=== PATIENT | male | born 1960 | race Caucasian/White ===

== ENCOUNTER 2019-02-01 11:12 | Inpatient (IN) | payer OTHER, MEDICARE ==
[~2019-02-01] VITALS: Ht 175.3 cm; Wt 102.9 kg
[~2019-02-01 11:12] MED LIST: AMLO10 PO; LISI20 PO; OXYACE5T PO; RANI150 PO
[2019-02-01 11:57] LABS: BASOPHILS ABSOLUTE AUTO 0.01 K/mm3 (0.00-0.23); BASOPHILS PERCENT AUTO 0 % (0-2); EOSINOPHILS ABSOLUTE AUTO 0.01 K/mm3 (0.00-0.68); EOSINOPHILS PERCENT AUTO 0 % (0-6); Hematocrit 18.3 % (37.0-53.0); Hemoglobin 6.8 g/dL (13.5-17.5); IMMATURE GRAN ABSOLUTE AUTO 0.07 K/mm3 (0.00-0.10); IMMATURE GRAN PERCENT AUTO 1 % (0-1); LYMPHOCYTES ABSOLUTE AUTO 0.66 K/mm3 (0.84-5.20); LYMPHOCYTES PERCENT AUTO 7 % (21-46); MONOCYTES ABSOLUTE AUTO 0.75 K/mm3 (0.16-1.47); MONOCYTES PERCENT AUTO 8 % (4-13); Mean Corpuscular HGB 39.5 pg (26.0-34.0); Mean Corpuscular HGB Conc 37.2 g/dL (31.5-36.5); Mean Corpuscular Volume 106 fL (80-100); NEUTROPHILS ABSOLUTE AUTO 8.13 K/mm3 (1.96-9.15); NEUTROPHILS PERCENT AUTO 84 % (41-73); Platelet Count 88 K/mm3 (150-400); RDW Coefficient Variation 17.8 % (11.7-14.2); RDW Standard Deviation 68.8 fL (35.1-46.3); Red Blood Cell Count 1.72 M/mm3 (4.30-5.90); White Blood Cell Count 9.63 K/mm3 (4.00-11.30)
[2019-02-01 12:11] LABS: Alanine Aminotransfer (ALT/SGP 48 U/L (12-78); Albumin, Blood 2.3 g/dL (3.4-5.0); Albumin/Globulin Ratio 0.5 (0.8-1.8); Alk Phos 161 U/L (50-136); Anion Gap 8 mmol/L (6-16); Aspartate Aminotrans (AST/SGOT 82 U/L (12-37); Bilirubin, Total 3.8 mg/dL (0.1-1.0); Blood Urea Nitrogen 18 mg/dL (8-24); CO2, Blood 21 mmol/L (21-32); Calcium, Blood 8.5 mg/dL (8.5-10.1); Chloride, Blood 94 mmol/L (98-108); Creatinine, Blood 1.06 mg/dL (0.60-1.20); Globulin, Blood 4.4 g/dL (2.2-4.0); Glomerular Filtration Rate >60 (60-); Glucose, Blood 118 mg/dL (70-99); Potassium, Blood 5.3 mmol/L (3.5-5.5); Sodium, Blood 123 mmol/L (136-145); Total Protein, Blood 6.7 g/dL (6.4-8.2)
[2019-02-01 13:24] LABS: Magnesium, Blood 1.6 mg/dL (1.6-2.4); Phosphorus, Blood 3.5 mg/dL (2.5-4.9); Troponin I 0.069 ng/mL (0.000-0.040)
[2019-02-01] MEDS ORDERED: ALBU90OI61 INH (14:23)
[2019-02-01 15:51] LABS: Source, Urine Clean Catch
[2019-02-01 15:57] LABS: Appearance, Urine Hazy (Clear); Bilirubin, Urine Neg (Neg); Blood, Urine 1+ (Neg); Color, Urine Yellow (P-Yellow); Glucose Qualitative, Urine Neg (Neg); Ketones, Urine Neg (Neg); Leukocyte Esterase, Urine 3+ (Neg); Nitrite, Urine Neg (Neg); Protein, Urine 1+ (Neg); Urobilinogen, Urine 2+ (Normal)
[2019-02-01 16:06] LABS: White Blood Cells, Urine 25-50 /hpf (0-5)
[2019-02-01 16:07] LABS: Amorphous Light (0-Heavy); Bacteria Many /hpf; Red Blood Cells, Urine 0-2 /hpf (0-2); Squamous Epithelial Cells Rare /hpf (Few)
[2019-02-01 17:00] LABS: Source, Urine Catheter
[2019-02-01 17:09] LABS: Appearance, Urine Cloudy (Clear); Blood, Urine 3+ (Neg); Color, Urine Amber (P-Yellow); Glucose Qualitative, Urine Neg (Neg); Ketones, Urine Neg (Neg); Leukocyte Esterase, Urine 3+ (Neg); Nitrite, Urine Neg (Neg); Protein, Urine 2+ (Neg); Urobilinogen, Urine 2+ (Normal)
[2019-02-01 17:17] LABS: Bilirubin, Urine 1+ (Neg)
[2019-02-01 17:18] LABS: White Blood Cells, Urine TNTC /hpf (0-5)
[2019-02-01 17:19] LABS: Amorphous Light (0-Heavy); Bacteria Many /hpf; Squamous Epithelial Cells Rare /hpf (Few)
--- NOTE | 2019-02-01 17:44 | NUR ---
SHIFT SUMMARY PT ALERT, BUT ONLY ORIENTED TO SELF. PT SPEAKING IN SHORT SLOW SENTENCES, BUT NOT MAKING SENSE. PT DENIES PAIN. PT DID HAVE ONE SMALL BM UPON ARRIVAL THAT WAS INCONTINENT. LUU CATHETER INSERTED THIS SHIFT DUE TO RETENTION AND 500 DRAINED OUT OF DARK YELLOW URINE. ABDOMEN IS FIRM AND DISTENDED. PT HAS LONG HISTORY OF ALCOHOL ABUSE, BUT DIFFICULT TO ASSESS FOR WITHDRAWALS DUE TO MENTATION. WILL CONTINUE TO MONITOR CLOSELY AND REPORT TO ONCOMING RN. BED ALARM ON
[2019-02-02 04:10] LABS: BASOPHILS ABSOLUTE AUTO 0.01 K/mm3 (0.00-0.23); BASOPHILS PERCENT AUTO 0 % (0-2); EOSINOPHILS ABSOLUTE AUTO 0.03 K/mm3 (0.00-0.68); EOSINOPHILS PERCENT AUTO 0 % (0-6); Hemoglobin 6.1 g/dL (13.5-17.5); IMMATURE GRAN ABSOLUTE AUTO 0.05 K/mm3 (0.00-0.10); IMMATURE GRAN PERCENT AUTO 1 % (0-1); LYMPHOCYTES ABSOLUTE AUTO 0.78 K/mm3 (0.84-5.20); LYMPHOCYTES PERCENT AUTO 8 % (21-46); MONOCYTES ABSOLUTE AUTO 0.92 K/mm3 (0.16-1.47); MONOCYTES PERCENT AUTO 9 % (4-13); Mean Corpuscular HGB 38.4 pg (26.0-34.0); Mean Corpuscular HGB Conc 35.9 g/dL (31.5-36.5); Mean Corpuscular Volume 107 fL (80-100); Mean Platelet Volume 9.6 fL (9.1-12.4); NEUTROPHILS ABSOLUTE AUTO 7.96 K/mm3 (1.96-9.15); NEUTROPHILS PERCENT AUTO 82 % (41-73); NRBC ABSOLUTE 0.02 K/mm3 (0.00-0.02); NRBC Auto 0.2 /100 WBC (0.0-0.2); Platelet Count 85 K/mm3 (150-400); RDW Coefficient Variation 18.4 % (11.7-14.2); Red Blood Cell Count 1.59 M/mm3 (4.30-5.90); White Blood Cell Count 9.75 K/mm3 (4.00-11.30)
[2019-02-02 04:26] LABS: Alanine Aminotransfer (ALT/SGP 49 U/L (12-78); Albumin, Blood 1.9 g/dL (3.4-5.0); Albumin/Globulin Ratio 0.6 (0.8-1.8); Alk Phos 115 U/L (50-136); Anion Gap 6 mmol/L (6-16); Aspartate Aminotrans (AST/SGOT 179 U/L (12-37); Bilirubin, Total 3.3 mg/dL (0.1-1.0); Blood Urea Nitrogen 18 mg/dL (8-24); Bun/Creatinine Ratio 18.2 (12.0-20.0); CO2, Blood 23 mmol/L (21-32); Calcium, Blood 7.9 mg/dL (8.5-10.1); Chloride, Blood 98 mmol/L (98-108); Creatinine, Blood 0.99 mg/dL (0.60-1.20); Globulin, Blood 3.4 g/dL (2.2-4.0); Glomerular Filtration Rate >60 (60-); Glucose, Blood 83 mg/dL (70-99); Magnesium, Blood 1.6 mg/dL (1.6-2.4); Potassium, Blood 4.4 mmol/L (3.5-5.5); Sodium, Blood 127 mmol/L (136-145); Total Protein, Blood 5.3 g/dL (6.4-8.2)
--- NOTE | 2019-02-02 05:35 | NUR ---
CALL TO MD: H&H CALL TO MD KEN THIS AM TO REPORT HGB OF 6.1 AND HCT OF 17.0 W/ ORDERS TO TRANSFUSE 1 UNIT PRBC'S.
--- NOTE | 2019-02-02 06:28 | NUR ---
SHIFT SUMMARY PT BECOMING MORE ALERT, SAYING MORE WORDS, FOLLOWING INSTRUCTIONS. PT REPETITVELY SAYING "FUCK" AND "GOD DAMNIT" DURING SHIFT W/ NO EXPLANATION OF WHY WHEN ASKED BY STAFF. PT COOPERATIVE W/ CARE. VSS. LUNG SOUNDS CLEAR, SPO2 > 92% ON RA. MONITOR SHOWS NSR, HR 70-90. PT'S ABD SEVERELY DISTENDED AND FIRM. PT INCONTINENT OF STOOL W/ LOOSE BROWN STOOLS THIS SHIFT. LUU CATH PATENT AND DRAINING DARK YELLOW URINE. BLE EDEMATOUS. CALL TO MD KEN TO REPORT H&H W/ ORDERS TO TRANSFUSE 1 UNIT PRBC'S. TYPE AND CROSS DONE. UNIT OF PRBC'S TO BE TRANSFUSED. WILL CONTINUE TO MONITOR AND PROVIDE CARE UNTIL REPORT OFF TO DAY SHIFT RN.
--- NOTE | 2019-02-02 10:28 | NUR ---
Initial Visit: Palliative Care Consult for Medically Fragile and Symptom Management. Pt is A&OX1. Pt denies pain at this time. No S/S of dyspnea at this time. When attempting to speak he answers occasionaly yes or no. Called and spoke with Pt's sister Elma. Engaged in therapeutic discussion regarding goals of care. Elma reports Pt lost his in August of this year and since Pt has shown a significant decline. Elma reports Pt's was the health care decision maker when she was alive and now she is the Pt's only family. Elma reports Pt has been living with her for the last 3 weeks. She states Pt was not caring for himeself and has been experiencing increased confusion. Pt was soiled of bowel and bladder on the day she took him in. Elma states Pt's lucid moments are few and far between. He requires assistance with ambulation, bathing, and dressing. He is incontinent of bowel and bladder often. Elma reports his appetite has also decreased and does not eat much. Discussed disease process with Elma and goals of care including hospic as an option. Elma states that she feels Pt should be placed on hospice. Educated Elma on hospice philosophy and comfort care philosophy. Elma also reports Pt is a but is unsure if he is service connected. She reports difficulty with caring for Pt due to raising 2 children in the home. Elma reports yudith she would like Pt placed in facility on hospice upon discharge and would like Pt placed on comfort measures only during hospital stay. Relayed information given to this RN from Dr Bae that Pt is appropriate for comfort measures and hospice but would like GI to consult before making final decision. Elma is agreeable. Called [place] and requested AD and POLST. Louie from [place] reports POLST only on file and faxed to palliative care. POLST completed by Pt's on 06/15/17. POLST reads CPR, Full Treatment, and Supervisor Cutting And Boning Artificial Nutrition by Tube. If goals of care switch to comfort care consideration of new POLST to be completed by family. Plan: Will await GI consultation to determine goals of care. Comfort Care is being considered. Will place Social Service Consult once goals of care are determined.
[2019-02-02 12:07] LABS: Hemoglobin 7.3 g/dL (13.5-17.5)
--- NOTE | 2019-02-02 17:27 | NUR ---
Called and spoke with Pt's sister Elma. Elma reports receiving call from Dr Edwards and is agreeable with his plan of care. Elma expresses concerns if Pt recovers she does not want him living at his home. Elma reports his home's condition is poor. She expresses concerns that Pt will not be compliant with Doctor recommendations. She states when she went to Pt's home there were a lot of empty beer cans and a lot of empty vodka bottles. She requests to have a pediatric social worker call her to discuss concerns. Instructed Elma a social service referral will be placed and a director of critical care will call to discuss concerns. Palliative Care will remain available
--- NOTE | 2019-02-02 18:32 | NUR ---
SHIFT SUMMARY PT ONLY ORIENTED TO SELF. PT STILL CONFUSED AND UNABLE TO ANSWER QUESTIONS APPROPRIATELY. PT RECEIVED 1U PRBC THIS SHIFT. CLINIMIX INFUSING PER ORDERS. PT HAVING FREQUENT LOOSE BROWN STOOL. ORDERS FROM DR. COLLINS TO TITRATE LACTULOSE UNTIL 2-3 BM A DAY. PLAN FOR PARACENTESIS TOMORROW. WILL CONTINUE TO MONITOR AND REPORT TO ONCOMING RN.
--- NOTE | 2019-02-02 21:47 | NUR ---
CARE ASSUMED CARE AND REPORT ASSUMED FROM ELY WILLSON. PT SLEEPING IN BED BUT AROUSES EASILY. A/O ONLY TO SELF. DENIES PAIN AT THIS TIME. VSS. NSR. LUNG SOUNDS CLEAR. CLINIMIX INFUSING PER ORDER. PT GIVEN BEDBATH BY PHOTOCOMPOSING MACHINE OPERATOR AND LINENS CHANGED. WILL CONTINUE TO MONITOR.
--- NOTE | 2019-02-03 00:13 | NUR ---
REASSESSMENT PT SLEEPING BUT EASILY AWAKENS. DENIES PAIN. HAD LARGE, INCONTINENT BM IN BRIEF. BREIF AND LINENS CHANGED. CLINIMIX REMAINS INFUSING. WILL CONTINUE TO MONITOR.
[2019-02-03 03:47] LABS: BASOPHILS ABSOLUTE AUTO 0.01 K/mm3 (0.00-0.23); BASOPHILS PERCENT AUTO 0 % (0-2); EOSINOPHILS ABSOLUTE AUTO 0.01 K/mm3 (0.00-0.68); EOSINOPHILS PERCENT AUTO 0 % (0-6); Hematocrit 18.9 % (37.0-53.0); Hemoglobin 6.8 g/dL (13.5-17.5); IMMATURE GRAN ABSOLUTE AUTO 0.09 K/mm3 (0.00-0.10); IMMATURE GRAN PERCENT AUTO 1 % (0-1); LYMPHOCYTES ABSOLUTE AUTO 1.01 K/mm3 (0.84-5.20); LYMPHOCYTES PERCENT AUTO 7 % (21-46); MONOCYTES PERCENT AUTO 9 % (4-13); Mean Corpuscular Volume 106 fL (80-100); Mean Platelet Volume 10.8 fL (9.1-12.4); NEUTROPHILS ABSOLUTE AUTO 12.45 K/mm3 (1.96-9.15); NEUTROPHILS PERCENT AUTO 84 % (41-73); NRBC ABSOLUTE 0.02 K/mm3 (0.00-0.02); NRBC Auto 0.1 /100 WBC (0.0-0.2); Platelet Count 84 K/mm3 (150-400); RDW Coefficient Variation 18.6 % (11.7-14.2); RDW Standard Deviation 70.7 fL (35.1-46.3); Red Blood Cell Count 1.79 M/mm3 (4.30-5.90); White Blood Cell Count 14.87 K/mm3 (4.00-11.30)
[2019-02-03 03:58] LABS: International Normalized Ratio 1.66; Prothrombin Time Results 16.8 Sec (9.7-11.5)
[2019-02-03 04:03] LABS: Alanine Aminotransfer (ALT/SGP 56 U/L (12-78); Albumin, Blood 1.9 g/dL (3.4-5.0); Albumin/Globulin Ratio 0.6 (0.8-1.8); Alk Phos 110 U/L (50-136); Anion Gap 9 mmol/L (6-16); Aspartate Aminotrans (AST/SGOT 219 U/L (12-37); Bilirubin, Total 4.4 mg/dL (0.1-1.0); Blood Urea Nitrogen 22 mg/dL (8-24); Bun/Creatinine Ratio 19.1 (12.0-20.0); CO2, Blood 22 mmol/L (21-32); Calcium, Blood 7.7 mg/dL (8.5-10.1); Chloride, Blood 98 mmol/L (98-108); Creatinine, Blood 1.15 mg/dL (0.60-1.20); Globulin, Blood 3.4 g/dL (2.2-4.0); Glomerular Filtration Rate >60 (60-); Glucose, Blood 89 mg/dL (70-99); Potassium, Blood 3.9 mmol/L (3.5-5.5); Sodium, Blood 129 mmol/L (136-145); Total Protein, Blood 5.3 g/dL (6.4-8.2)
--- NOTE | 2019-02-03 06:17 | NUR ---
SHIFT SUMMARY PT SLEPT ON/OFF MOST OF SHIFT. NO SIGNS OF PAIN. VSS ENTIRE SHIFT. PT HAD MULTIPLE LARGE, SOFT, INCONTINENT BOWEL MOVEMENTS. LINENS, GINGER CARE, AND BRIEFS CHANGED FREQUENTLY DURING SHIFT. PT MANAGED TO PULL 2 PERIPHERAL IVS OUT OF ARMS. 2 NEW IVS INSERTED JUST NOW. MD BEACH CALLED AND NOTIFIED OF HGB 6.8; 1 UNIT PRBCS TO BE ADMINISTERED; AWAITING UNIT. CLINIMIX INFUSED ENTIRE SHIFT. WILL GIVE BEDSIDE, HANDOFF REPORT TO DAY RN.
[2019-02-03 08:23] LABS: Hematocrit 19.8 % (37.0-53.0); Hemoglobin 7.2 g/dL (13.5-17.5); Mean Corpuscular HGB 37.9 pg (26.0-34.0); Mean Corpuscular HGB Conc 36.4 g/dL (31.5-36.5); Mean Corpuscular Volume 104 fL (80-100); NRBC ABSOLUTE 0.02 K/mm3 (0.00-0.02); NRBC Auto 0.1 /100 WBC (0.0-0.2); Platelet Count 78 K/mm3 (150-400); RDW Coefficient Variation 19.2 % (11.7-14.2); RDW Standard Deviation 71.6 fL (35.1-46.3)
--- NOTE | 2019-02-03 10:24 | NUR ---
RECEIVED REPORT AND ASSUMED CARE OF PATIENT, HE IS ALERT TO SELF AND IS ANSWERING QUESTIONS SLOWLY, ALSO ABLE TO PROVIDE PERSONAL ADL OF WASHING HIS FACE THIS AM. PT INCONTINENT OF BOWEL, CHANGED ATTENDS AND LINENS AND WILL CONTINUE TO MONITOR. COCCYX IS RED AND SOME OPEN AREA OF SKIN, WILL WATCH CLOSELY. APPLIED BARRIER CREAM TO AFFECTED AREA. VSS, ONE UNIT OF PRBC COMPLETE AND SECOND WILL START AFTER CIPRO ABX COMPLETE. WILL CONTINUE TO MONITOR AND ASSESS. BED ALARM SET.
[2019-02-03 13:27] LABS: Albumin, Body Fluid 0.4 g/dL; Protein, Body Fluid 1.1 g/dL
[2019-02-03 13:30] LABS: Automated BF RBC Count 0.028 M/mm3 (0-0); Automated BF WBC Count 0.341 K/mm3 (0-999); Body Fluid WBC Count 341 /mm3 (0-999); RBC Count, Body Fluid 28000 /mm3 (0-0)
[2019-02-03 14:03] LABS: Color, Body Fluid Red (None-Yellow)
[2019-02-03 14:04] LABS: Appearance, Body Fluid Cloudy (Clear)
[2019-02-03 14:17] LABS: Total Cell Count, Body Fluid 100
[2019-02-03 16:32] LABS: Hematocrit 23.1 % (37.0-53.0); Hemoglobin 8.2 g/dL (13.5-17.5)
--- NOTE | 2019-02-03 18:32 | NUR ---
PT HAD A GOOD DAY TODAY, PARACENTESIS COMPLETED AND 2.5 L OFF, PT STATED THAT IT FELT BETTER WITH LESS PRESSURE. WHEN PT CAME BACK FROM PROCEDURE HE STATED HE WANTED TO EAT. PROVIDED JELLO, HE ATE TWO SMALL CONTAINERS WITH NO PROBLEM, CALLED DR. MCHUGH FOR ORDER TO ADVANCE DIET AND GET A FULL LIQUID TRAY. PT HAS BEEN SLEEPY THIS AFTERNOON, DINNER TRAY HAS REMAINED UNTOUCHED, BUT PT MAY BE ABLE TO HAVE SOME ITEMS LATER WHEN HE IS WOKEN UP MORE. PT CONTINUES ON CLIMIX 75 ML/HR. 2 UNITS PRBC TODAY. LUU CATH IN PLACE. MANY ATTENDS AND LINEN CHANGES FROM BM'S TODAY. WILL CONTINUE TO MONITOR AND GIVE REPORT TO NOC RN.
--- NOTE | 2019-02-03 21:40 | NUR ---
CARE ASSUMED/ DR. COLLINS COMMUNICATION REPORT RECEIVED, CARE ASSUMED AT 1900. PT DROWSY, SLOW TO RESPOND BUT ORIENTED TO SELF AND LOCATION. SEE SHIFT ASSESSMENT. VITALS STABLE. PT DENIES PAIN/DISCOMFORT. DR. COLLINS TO BEDSIDE FOR ASSESSMENT AT 2134. UPDATED ON EVENTS OF DAY. DISCUSSED LACTULOS IN RELATION TO BOWEL MOVEMENTS AND DR. COLLINS ARTICULATED A GOAL OF 2-3 PUDDING LIKE STOOLS PER DAY, HOLD FOR DIARRHEA. WILL HOLD 2100 DOSE. OTHERWISE, NO CHANGES TO PLAN OF CARE.
[2019-02-04 03:07] LABS: HBSAG SCREEN Negative (Negative); HCV ANTIBODY <0.1 (0.0-0.9); HEP B CORE AB, TOT Negative (Negative)
[2019-02-04 03:57] LABS: BASOPHILS PERCENT AUTO 0 % (0-2); EOSINOPHILS ABSOLUTE AUTO 0.03 K/mm3 (0.00-0.68); EOSINOPHILS PERCENT AUTO 0 % (0-6); Hematocrit 21.3 % (37.0-53.0); Hemoglobin 7.7 g/dL (13.5-17.5); IMMATURE GRAN ABSOLUTE AUTO 0.08 K/mm3 (0.00-0.10); IMMATURE GRAN PERCENT AUTO 1 % (0-1); LYMPHOCYTES ABSOLUTE AUTO 1.01 K/mm3 (0.84-5.20); LYMPHOCYTES PERCENT AUTO 8 % (21-46); MONOCYTES ABSOLUTE AUTO 0.99 K/mm3 (0.16-1.47); MONOCYTES PERCENT AUTO 8 % (4-13); Mean Corpuscular HGB 36.5 pg (26.0-34.0); Mean Corpuscular HGB Conc 36.2 g/dL (31.5-36.5); Mean Platelet Volume 10.9 fL (9.1-12.4); NEUTROPHILS ABSOLUTE AUTO 10.16 K/mm3 (1.96-9.15); NEUTROPHILS PERCENT AUTO 83 % (41-73); NRBC ABSOLUTE 0.02 K/mm3 (0.00-0.02); NRBC Auto 0.2 /100 WBC (0.0-0.2); Platelet Count 66 K/mm3 (150-400); RDW Standard Deviation 77.3 fL (35.1-46.3); Red Blood Cell Count 2.11 M/mm3 (4.30-5.90); White Blood Cell Count 12.27 K/mm3 (4.00-11.30)
[2019-02-04 04:04] LABS: Mean Corpuscular Volume 101 fL (80-100)
[2019-02-04 04:10] LABS: International Normalized Ratio 1.66; Prothrombin Time Results 16.8 Sec (9.7-11.5)
[2019-02-04 04:22] LABS: Alanine Aminotransfer (ALT/SGP 54 U/L (12-78); Albumin, Blood 1.9 g/dL (3.4-5.0); Albumin/Globulin Ratio 0.6 (0.8-1.8); Alk Phos 90 U/L (50-136); Anion Gap 8 mmol/L (6-16); Aspartate Aminotrans (AST/SGOT 173 U/L (12-37); Bilirubin, Total 4.8 mg/dL (0.1-1.0); Blood Urea Nitrogen 31 mg/dL (8-24); CO2, Blood 22 mmol/L (21-32); Calcium, Blood 7.6 mg/dL (8.5-10.1); Chloride, Blood 97 mmol/L (98-108); Creatinine, Blood 1.15 mg/dL (0.60-1.20); Globulin, Blood 3.2 g/dL (2.2-4.0); Glomerular Filtration Rate >60 (60-); Glucose, Blood 94 mg/dL (70-99); Potassium, Blood 3.8 mmol/L (3.5-5.5); Sodium, Blood 127 mmol/L (136-145); Total Protein, Blood 5.1 g/dL (6.4-8.2)
--- NOTE | 2019-02-04 06:03 | NUR ---
SUMMARY THROUGHOUT NIGHT PT HAS REMAINED ORIENTED TO SELF AND LOCATION, BUT CONFUSED AND PULLING AT DISTRIBUTION OPERATION SUPERVISOR, CHEWING ON WIRES, AND HE ALSO PULLED ONE OF HIS IV'S. PT ASKS QUESTIONS THAT DO NOT MAKE SENSE. PROVIDED WITH FREQUENT REORIENTATION. ATTEMPTED TO ADMINISTER MORNING ORAL MEDS UNSUCCESFULLY PT IS NOT FOLLOWING COMMANDS. PT HAD SEVERAL BOWEL MOVEMEMENTS. THE MOST RECENT WERE LARGE, ROUND AND FIRM AND DIARRHEA HAS RESOLVED. CONTINUES TO BE INCONTINENT. VITALS STABLE. OTHERWISE, ASSESSMENTS UNCHANGED.
--- NOTE | 2019-02-04 15:17 | NUR ---
RECEIVED REPORT AND ASSUMED CARE OF PATIENT, HE HAD A GREAT MORNING, HE WAS UP AND ATE ALL OF HIS BREAKFAST AND TOLERATED WELL. PT WAS UP WITH OT AND WALKED TO BATHROOM FOR BM. PT HAD BATH AND WAS BACK TO BED. PT WAS PRETTY SLEEPY THIS AFTERNOON, WHEN HE AWAKES, HE IS ALERT TO SELF AND ANSWERS QUESTIONS APPROPRIATELY. DR HENRYTRATE TO SEE PATIENT AND ENCOURAGED PT TO BE UP IN THE ROOM A FEW TIMES A DAY, WILL GET PATIENT UP TO CHAIR FOR DINNER. TRANSFER ORDER TO MEDICAL IS IN, WILL AWAIT A BED AND GIVE REPORT IF ONE COMES AVAILABLE.
--- NOTE | 2019-02-04 18:29 | NUR ---
REPORT GIVEN TO ROOM 304 MEDICAL FLOOR NURSE. PT SITTING UP EATING DINNER AT THIS TIME. TOLERATING ADVANCEMENT OF DIET WELL.
--- NOTE | 2019-02-04 18:30 | NUR ---
PT. ARRIVED TO ROOM VIA BED FROM PCU-10. BEDS TRADED AND SETTLED PT. IN. SKIN OOZING ON RIGHT SIDE GOWN WENT, CHANGED GOWN AND PLACED A MEPILEX. PT. HAS SORES T/O AND IS JAUNDICED T/O.WILL SETTLE PATIENT IN AND REPORT OFF TO ONCOMING SHIFT.
[2019-02-05 04:40] LABS: BASOPHILS ABSOLUTE AUTO 0.01 K/mm3 (0.00-0.23); BASOPHILS PERCENT AUTO 0 % (0-2); EOSINOPHILS ABSOLUTE AUTO 0.08 K/mm3 (0.00-0.68); EOSINOPHILS PERCENT AUTO 1 % (0-6); Hematocrit 21.6 % (37.0-53.0); Hemoglobin 7.8 g/dL (13.5-17.5); IMMATURE GRAN ABSOLUTE AUTO 0.08 K/mm3 (0.00-0.10); IMMATURE GRAN PERCENT AUTO 1 % (0-1); LYMPHOCYTES ABSOLUTE AUTO 1.04 K/mm3 (0.84-5.20); LYMPHOCYTES PERCENT AUTO 12 % (21-46); MONOCYTES ABSOLUTE AUTO 0.69 K/mm3 (0.16-1.47); MONOCYTES PERCENT AUTO 8 % (4-13); Mean Corpuscular HGB 36.3 pg (26.0-34.0); Mean Corpuscular HGB Conc 36.1 g/dL (31.5-36.5); Mean Corpuscular Volume 101 fL (80-100); Mean Platelet Volume 9.6 fL (9.1-12.4); NEUTROPHILS ABSOLUTE AUTO 6.75 K/mm3 (1.96-9.15); NEUTROPHILS PERCENT AUTO 78 % (41-73); NRBC ABSOLUTE 0.02 K/mm3 (0.00-0.02); NRBC Auto 0.2 /100 WBC (0.0-0.2); Platelet Count 69 K/mm3 (150-400); RDW Coefficient Variation 19.9 % (11.7-14.2); RDW Standard Deviation 71.6 fL (35.1-46.3); Red Blood Cell Count 2.15 M/mm3 (4.30-5.90); White Blood Cell Count 8.65 K/mm3 (4.00-11.30)
[2019-02-05 04:54] LABS: Alanine Aminotransfer (ALT/SGP 52 U/L (12-78); Albumin, Blood 1.9 g/dL (3.4-5.0); Albumin/Globulin Ratio 0.6 (0.8-1.8); Alk Phos 102 U/L (50-136); Anion Gap 8 mmol/L (6-16); Aspartate Aminotrans (AST/SGOT 132 U/L (12-37); Bilirubin, Total 3.2 mg/dL (0.1-1.0); Blood Urea Nitrogen 35 mg/dL (8-24); Bun/Creatinine Ratio 28.5 (12.0-20.0); CO2, Blood 22 mmol/L (21-32); Calcium, Blood 7.5 mg/dL (8.5-10.1); Chloride, Blood 97 mmol/L (98-108); Creatinine, Blood 1.23 mg/dL (0.60-1.20); Globulin, Blood 3.4 g/dL (2.2-4.0); Glomerular Filtration Rate >60 (60-); Glucose, Blood 104 mg/dL (70-99); Potassium, Blood 4.1 mmol/L (3.5-5.5); Sodium, Blood 127 mmol/L (136-145); Total Protein, Blood 5.3 g/dL (6.4-8.2)
--- NOTE | 2019-02-05 07:26 | NUR ---
abdm still swollen, no discharge noted, call light in reach, saline locked, room air, report given to returning day shift nurse
--- NOTE | 2019-02-05 13:41 | NUR ---
Pt visit this afternoon. Pt is resting in bed with his eyes closed upon arrival. He opens his eyes with verbal stimulation. Pt is A&Ox2. Pt is somnolent and lethargic. Pt has difficulty keeping his eyes open during conversation. He denies pain, axiety, and dyspnea. Spoke with bedside nurse Mesha and discussed case. Palliative Care will remain available.
[2019-02-05 14:47] LABS: International Normalized Ratio 1.54; Prothrombin Time Results 15.7 Sec (9.7-11.5)
[2019-02-05] MEDS ORDERED: LEVSOD125 PO (21:30)
[2019-02-05] MEDS ORDERED: FOLI1 PO (21:32)
[2019-02-05] MEDS ORDERED: CHOL10002 PO (21:32)
[2019-02-05] MEDS ORDERED: MAGNESIUM400 M1 PO (21:33)
[2019-02-05] MEDS ORDERED: SERT100 PO (21:34)
[2019-02-05] MEDS ORDERED: PROP10 PO (21:34)
[2019-02-05] MEDS ORDERED: SPIR25 PO (21:35)
[2019-02-06 04:41] LABS: BASOPHILS PERCENT AUTO 0 % (0-2); EOSINOPHILS ABSOLUTE AUTO 0.15 K/mm3 (0.00-0.68); EOSINOPHILS PERCENT AUTO 2 % (0-6); Hematocrit 20.7 % (37.0-53.0); Hemoglobin 7.4 g/dL (13.5-17.5); IMMATURE GRAN ABSOLUTE AUTO 0.12 K/mm3 (0.00-0.10); IMMATURE GRAN PERCENT AUTO 2 % (0-1); LYMPHOCYTES ABSOLUTE AUTO 0.93 K/mm3 (0.84-5.20); LYMPHOCYTES PERCENT AUTO 14 % (21-46); MONOCYTES ABSOLUTE AUTO 0.64 K/mm3 (0.16-1.47); MONOCYTES PERCENT AUTO 10 % (4-13); Mean Corpuscular HGB 35.9 pg (26.0-34.0); Mean Corpuscular HGB Conc 35.7 g/dL (31.5-36.5); Mean Corpuscular Volume 101 fL (80-100); Mean Platelet Volume 10.8 fL (9.1-12.4); NEUTROPHILS ABSOLUTE AUTO 4.67 K/mm3 (1.96-9.15); NEUTROPHILS PERCENT AUTO 72 % (41-73); Platelet Count 65 K/mm3 (150-400); RDW Coefficient Variation 19.9 % (11.7-14.2); RDW Standard Deviation 72.2 fL (35.1-46.3); Red Blood Cell Count 2.06 M/mm3 (4.30-5.90); White Blood Cell Count 6.51 K/mm3 (4.00-11.30)
[2019-02-06 04:57] LABS: Alanine Aminotransfer (ALT/SGP 48 U/L (12-78); Albumin, Blood 1.8 g/dL (3.4-5.0); Albumin/Globulin Ratio 0.5 (0.8-1.8); Alk Phos 122 U/L (50-136); Anion Gap 6 mmol/L (6-16); Aspartate Aminotrans (AST/SGOT 107 U/L (12-37); Bilirubin, Total 2.5 mg/dL (0.1-1.0); Blood Urea Nitrogen 34 mg/dL (8-24); Bun/Creatinine Ratio 28.3 (12.0-20.0); CO2, Blood 24 mmol/L (21-32); Calcium, Blood 7.5 mg/dL (8.5-10.1); Chloride, Blood 98 mmol/L (98-108); Globulin, Blood 3.3 g/dL (2.2-4.0); Glomerular Filtration Rate >60 (60-); Glucose, Blood 95 mg/dL (70-99); Magnesium, Blood 1.8 mg/dL (1.6-2.4); Potassium, Blood 4.1 mmol/L (3.5-5.5); Sodium, Blood 128 mmol/L (136-145); Total Protein, Blood 5.1 g/dL (6.4-8.2)
--- NOTE | 2019-02-06 06:20 | NUR ---
SHIFT SUMMARY NO ACUTE CHANGES TONIGHT. PT IS ALERT, BUT COGNITIVELY IMPAIRED. ABLE TO CARRY ON MINIMAL CONVERSATION, UNAWARE OF DATA, LOCATION. SLOW TO RESPOND. HYPOTENSIVE, BASELINE FOR PT, BP MEDS HELD. 2+ EDEMA TO BLE, ASCITES TO ABDOMEN. PRESSURE ULCER TO COCCYX, MEPILEX IN PLACE. PT IN NEED OF SNF PLACEMENT. NO OTHER CHANGES TO REPORT. WILL CONT TO MONITOR AND PROVIDE CARE UNTIL PRESUMED BY ONCOMING RN.
--- NOTE | 2019-02-06 16:10 | NUR ---
summary/TRANSFER PT IS A/O X2, DISORIENTED TO TIME/DATE, SOMEWHAT VAGUE RESPONSES R/T REASON FOR HOSP. ANSWERS SIMPLE QUEST APPROP. HE APPEARS, WEAK/FATIGUED, LETHARGIC. DR MCHUGH IN TO SEE HIM THIS AM, STATE IMPROVED FROM PREVIOUS DAYS, STATE READY FOR TRANSFER TO SNF AFTER SEEN BY GI DR COLLINS. DR COLLINS IN TO ASSESS, ABD ROUND, DISTENDED SOMEWHAT FIRM HOWEVER DR STATE IMPROVEMENT, STATE PT MAY BE D/C TO SNF TODAY. STATE TO HOLD LACTULOSE & TITRATE FOR 2-3 SOFT PASTY STOOLS/DAY. PT ENCOURAGED TO AMBULATE, UP WITH PHYTHER AMBULATE SHORT DISTANCE IN ROOM. GRID CASTING MACHINE OPERATOR HELPER ARRANGE TRANSFER TO [facility] WILL PROVIDE TRANSPORT APPROX 1730. CALLED REPORT TO JUAN LUIS RN. IV D/C INTACT. PT WILL TRANSFER WITH [facility] CATH IN PLACE/DR MCHUGH.
--- NOTE | 2019-02-06 16:59 | NUR ---
Pal Spiritual Care note: Mr. Damon was alone in room and sleeping. He awakend briefly to voice and complained of being "cold." Brought warm blanket and tried to engage him in theraputic conversation. He appeared too weak to stay awake. I will remain available.
--- NOTE | 2019-02-06 17:09 | NUR ---
HOLD TRANSFER TO SNF. PT FAMILY IN TO VISIT. INFORMED THAT PT WOULD BE TRANSFERING TO [facility] @ 1730. THEY ARE UPSET STATE THEY HAD MADE REQUEST WITH TRANSFER PUMPER YESTERDAY THAT THEY PREFER [facility]. CALL TO IRINA PELAEZ TRANSFER PUMPER ARRANGING D/C TODAY, SHE STATE WAS UNAWARE, STATE WILL CALL DR MCHUGH TO HOLD TRANSFER, STATE WILL RE-ARRANGE TRANSFER IN AM TO [facility]. FAMILY INFORMED STATE SATISFACTION.
--- NOTE | 2019-02-06 21:53 | NUR ---
PLACED CALL TO HOSPITALIST IN REGARDS TO AM HGB OF 7.4. ASKED TO ORDER CBC IN AM PRIOR TO D/C TO MAKE SURE PT DOES NOT REQUIRE RBC TRANSJohn KAHN DECLINED NEED FOR CBC. WILL CONT TO MONITOR.
--- NOTE | 2019-02-07 00:55 | NUR ---
PLACED CALL TO SUELLEN valdez SAME CONCERNS PRIOR NOTE. ORDERED CBC AND CMP AM LABS.
[2019-02-07 05:40] LABS: BASOPHILS ABSOLUTE AUTO 0.01 K/mm3 (0.00-0.23); BASOPHILS PERCENT AUTO 0 % (0-2); EOSINOPHILS ABSOLUTE AUTO 0.15 K/mm3 (0.00-0.68); EOSINOPHILS PERCENT AUTO 3 % (0-6); Hematocrit 20.7 % (37.0-53.0); Hemoglobin 7.3 g/dL (13.5-17.5); IMMATURE GRAN PERCENT AUTO 2 % (0-1); LYMPHOCYTES ABSOLUTE AUTO 0.92 K/mm3 (0.84-5.20); LYMPHOCYTES PERCENT AUTO 17 % (21-46); MONOCYTES ABSOLUTE AUTO 0.68 K/mm3 (0.16-1.47); MONOCYTES PERCENT AUTO 12 % (4-13); Mean Corpuscular HGB 36.3 pg (26.0-34.0); Mean Corpuscular HGB Conc 35.3 g/dL (31.5-36.5); Mean Corpuscular Volume 103 fL (80-100); Mean Platelet Volume 10.4 fL (9.1-12.4); NEUTROPHILS ABSOLUTE AUTO 3.73 K/mm3 (1.96-9.15); NEUTROPHILS PERCENT AUTO 67 % (41-73); NRBC ABSOLUTE 0.02 K/mm3 (0.00-0.02); NRBC Auto 0.4 /100 WBC (0.0-0.2); Platelet Count 61 K/mm3 (150-400); RDW Coefficient Variation 20.1 % (11.7-14.2); RDW Standard Deviation 75.1 fL (35.1-46.3); Red Blood Cell Count 2.01 M/mm3 (4.30-5.90); White Blood Cell Count 5.59 K/mm3 (4.00-11.30)
[2019-02-07 06:07] LABS: Alanine Aminotransfer (ALT/SGP 42 U/L (12-78); Albumin, Blood 1.7 g/dL (3.4-5.0); Albumin/Globulin Ratio 0.5 (0.8-1.8); Alk Phos 132 U/L (50-136); Anion Gap 8 mmol/L (6-16); Aspartate Aminotrans (AST/SGOT 83 U/L (12-37); Bilirubin, Total 2.3 mg/dL (0.1-1.0); Blood Urea Nitrogen 28 mg/dL (8-24); Bun/Creatinine Ratio 26.9 (12.0-20.0); CO2, Blood 22 mmol/L (21-32); Calcium, Blood 7.3 mg/dL (8.5-10.1); Chloride, Blood 99 mmol/L (98-108); Creatinine, Blood 1.04 mg/dL (0.60-1.20); Globulin, Blood 3.4 g/dL (2.2-4.0); Glomerular Filtration Rate >60 (60-); Glucose, Blood 121 mg/dL (70-99); Potassium, Blood 3.9 mmol/L (3.5-5.5); Sodium, Blood 129 mmol/L (136-145); Total Protein, Blood 5.1 g/dL (6.4-8.2)
--- NOTE | 2019-02-07 06:11 | NUR ---
SHIFT SUMMARY NO ACUTE CHANGES TONIGHT. PT MENTATION HAS IMPROVED OVER THE LAST FEW DAYS. PT IS A&O, WITH BASELINE LETHARGY AND ACUTE MINOR CONFUSION. PT IS ALERT TO SELF, PLACE, SURROUNDINGS, FOLLOWING DIRECTIONS. PM LACTULOSE HELD D/T SEVERAL LOOSE BMs. [facility]. NO OTHER CHANGES TO REPORT. WILL CONT TO MONITOR AND PROVIDE CARE UNTIL PRESUMED BY ONCOMING RN.
[2019-02-07] MEDS ORDERED: Feverall650 MG PR (12:57)
[2019-02-07] MEDS ORDERED: HALO2 PO (12:58)
[2019-02-07] MEDS ORDERED: FURO20 PO (12:58)
[2019-02-07] MEDS ORDERED: LACTULOSE20 GM/30 M PO (13:00)
[2019-02-07] MEDS ORDERED: ONDA4ODT SL (13:04)
[2019-02-07] MEDS ORDERED: Florastor250 MG PO (13:04)
--- NOTE | 2019-02-07 14:30 | NUR ---
SUMMARY/TRANSFER SNF DR COLLINS IN T SEE PT THIS AM, ASSESS ABD, ENCOURAGE PT TO AMBULATE MORE FREQUENTLY, STATE OK FOR D/C TO SNF TODAY. DR MCHUGH IN, PLACE ORDERS. IRINA Velazquez, COLOR REPAIRER ARRANGE TRANSFER TO UV/FAMILY REQUEST. TRANSPORTATION ARRANGED FOR 1530 VIA W/C V[facility]. FAMILY NOTIFIED, WILL MEET HIM @ FACILITY. REPORT CALLED TO [facility] RN. BEDBATH PROVIDED. PT STATE FEELS READY FOR TRANSFER TO SNF. DR MCHUGH STATE TRANSFER WITH [facility] CATH IN PLACE. VSS.
== END 2019-02-07 15:25 | DRG 441 ==
LOC: ER 11:12 → PCU 13:00 → MEDS 02-04 18:10 → ENPENDDIS 02-06 16:59 → EDPENDDIS 02-06 16:59 → MEDS 02-07 15:25
PROVIDERS: Emergency Medicine; Internal Medicine; Internal Medicine Gastroenterology; ADMIT Family Medicine
PROC: 30233N1 Transfusion of Nonautologous Red Blood Cells into Peripheral Vein, Percutaneous Approach (ICD-10-PCS; principal; 2019-02-02)
PROC: 0W9G3ZZ Drainage of Peritoneal Cavity, Percutaneous Approach (ICD-10-PCS; 2019-02-03)
DX: K72.90 Hepatic failure, unspecified without coma (principal); K65.2 Spontaneous bacterial peritonitis; K76.6 Portal hypertension; N39.0 Urinary tract infection, site not specified; K52.1 Toxic gastroenteritis and colitis; E87.1 Hypo-osmolality and hyponatremia; N17.9 Acute kidney failure, unspecified; K56.7 Ileus, unspecified; G47.33 Obstructive sleep apnea (adult) (pediatric); I10 Essential (primary) hypertension; F43.10 Post-traumatic stress disorder, unspecified; F10.20 Alcohol dependence, uncomplicated; K70.31 Alcoholic cirrhosis of liver with ascites; F41.8 Other specified anxiety disorders; E05.90 Thyrotoxicosis, unspecified without thyrotoxic crisis or storm; K56.41 Fecal impaction; D64.9 Anemia, unspecified; R60.1 Generalized edema; T47.3X5A Adverse effect of saline and osmotic laxatives, initial encounter; Y92.239 Unspecified place in hospital as the place of occurrence of the external cause
CPT/HCPCS: 36415; 36430; 49083; 51702; 74176; 80053; 81001; 82042; 82105; 82140; 83690; 83735; 84100; 84157; 84484; 85014; 85018; 85025; 85027; 85610; 85730; 86317; 86704; 86708; 86803; 86850; 86900; 86901; 86923; 87070; 87075; 87077; 87086; 87185; 87186; 87205; 87340; 89051; 90744; 94640; 94760; 96360; 97116; 97162; 97166; 97530; 97535; 99285-25; C9113; G0480; J0744; J1940; J7030; J7050; P9016

== ENCOUNTER 2019-02-10 06:03 | Inpatient (IN) | payer OTHER, MEDICARE ==
[~2019-02-10] VITALS: Ht 177.8 cm; Wt 113.9 kg
[~2019-02-10 06:03] MED LIST changes: +ALBU90OI61 INH; +CHOL10002 PO; +FOLI1 PO; +FURO20 PO; +Feverall650 MG PR; +Florastor250 MG PO; +HALO2 PO; +LACTULOSE20 GM/30 M PO; +LEVSOD125 PO; +MAGNESIUM400 M1 PO; +ONDA4ODT SL; +PROP10 PO; +SERT100 PO; +SPIR25 PO
[2019-02-10 06:41] LABS: BASOPHILS ABSOLUTE AUTO 0.02 K/mm3 (0.00-0.23); BASOPHILS PERCENT AUTO 0 % (0-2); EOSINOPHILS ABSOLUTE AUTO 0.17 K/mm3 (0.00-0.68); EOSINOPHILS PERCENT AUTO 3 % (0-6); Hematocrit 24.2 % (37.0-53.0); Hemoglobin 8.4 g/dL (13.5-17.5); IMMATURE GRAN ABSOLUTE AUTO 0.09 K/mm3 (0.00-0.10); IMMATURE GRAN PERCENT AUTO 1 % (0-1); LYMPHOCYTES ABSOLUTE AUTO 1.22 K/mm3 (0.84-5.20); LYMPHOCYTES PERCENT AUTO 18 % (21-46); MONOCYTES ABSOLUTE AUTO 0.75 K/mm3 (0.16-1.47); MONOCYTES PERCENT AUTO 11 % (4-13); Mean Corpuscular HGB 36.4 pg (26.0-34.0); Mean Corpuscular HGB Conc 34.7 g/dL (31.5-36.5); Mean Corpuscular Volume 105 fL (80-100); Mean Platelet Volume 10.4 fL (9.1-12.4); NEUTROPHILS ABSOLUTE AUTO 4.64 K/mm3 (1.96-9.15); NEUTROPHILS PERCENT AUTO 67 % (41-73); Platelet Count 84 K/mm3 (150-400); RDW Coefficient Variation 20.4 % (11.7-14.2); RDW Standard Deviation 77.5 fL (35.1-46.3); Red Blood Cell Count 2.31 M/mm3 (4.30-5.90); White Blood Cell Count 6.89 K/mm3 (4.00-11.30)
[2019-02-10 06:48] LABS: Alanine Aminotransfer (ALT/SGP 45 U/L (12-78); Albumin, Blood 1.8 g/dL (3.4-5.0); Albumin/Globulin Ratio 0.5 (0.8-1.8); Alk Phos 197 U/L (50-136); Anion Gap 5 mmol/L (6-16); Aspartate Aminotrans (AST/SGOT 73 U/L (12-37); Bilirubin, Total 1.9 mg/dL (0.1-1.0); Blood Urea Nitrogen 19 mg/dL (8-24); Bun/Creatinine Ratio 21.1 (12.0-20.0); CO2, Blood 28 mmol/L (21-32); Calcium, Blood 7.4 mg/dL (8.5-10.1); Chloride, Blood 101 mmol/L (98-108); Globulin, Blood 3.9 g/dL (2.2-4.0); Glomerular Filtration Rate >60 (60-); Glucose, Blood 98 mg/dL (70-99); Potassium, Blood 4.2 mmol/L (3.5-5.5); Sodium, Blood 134 mmol/L (136-145); Total Protein, Blood 5.7 g/dL (6.4-8.2)
[2019-02-10 12:14] LABS: Source, Urine Catheter
[2019-02-10 12:42] LABS: Bilirubin, Urine Neg (Neg); Blood, Urine 1+ (Neg); Glucose Qualitative, Urine Neg (Neg); Ketones, Urine Neg (Neg); Leukocyte Esterase, Urine 1+ (Neg); Nitrite, Urine Neg (Neg); Protein, Urine 1+ (Neg); Urobilinogen, Urine NORM (Normal); pH, Urine 6.5 (5.0-8.0)
[2019-02-10 13:19] LABS: Appearance, Urine Clear (Clear); Color, Urine Yellow (P-Yellow)
[2019-02-10 13:21] LABS: Bacteria Few /hpf; Red Blood Cells, Urine 0-2 /hpf (0-2); Squamous Epithelial Cells Rare /hpf (Few)
--- NOTE | 2019-02-10 18:44 | NUR ---
SHIFT SUMMARY LYNCH (LEE) ARRIVED THIS MORNING FROM ED. CONFUSED, BUT PLEASANT AND DIRECTABLE. INCONTINENT DARK RED BLOOD PER RECTUM X2. LUU EXCHANGED FOR NEW ONE AND UA SENT. PICS TAKEN OF SKIN BREAKDOWN IN GINGER AREA AND GINGER-ANAL AREA. TELE SHOWS NSR. NIECE VISITED. DENIED PAIN. WAS A01 FROM STRETCHER TO BED. CALL LIGHT IN REACH, FREQUENT CHECKS. TM
--- NOTE | 2019-02-10 23:27 | NUR ---
INFORMED DR. COLLINS PT. HAD LARGE LIQUID BLOOD COME FROM RECTUM AND HGB 8.4 FROM THE AM. PROVIDER NOTED PT. LOOKS VERY SICK. RECEIVED ORDER TO TRANSFER PT. TO PCU. REPORT GIVEN TO CHUCKIE WILLSON @248. PT. TRANSPORTED OFF THE UNIT @2322 VIA BED BY RN AND TARP REPAIRER TO PCU BED 16.
--- NOTE | 2019-02-11 | NUR ---
ASSUMED CARE OF PATIENT AT APPROX 2130 PATIENT ALERT BUT NOT ORIENTED - PLEASANT AND COOPERATIVE WITH CARE AND FOLLOWS COMMONDES BUT CONFUSED TO DATE, LOCATION AND SITUATION. RESP E/U ON ROOM AIR. PATIENT HYPOTENSIVE (WORSENING T/O SHIFT - SEE VS) AND TACHYCARDIC. PATIENT HAVING RECATAL BLEEDING - SEVERE LATONYA RED WITH CLOTS - PROVIDER MD COLLINS NOTIFIED. PATIENT RECIEVED 2 UNITS FFP WHILE IN PCU - PATIENT CONTINUED TO HAVE WORSENING HYPOTENSION WITH SEVERE RECTAL BLEEDING. PATIENT NOTED TO HAVE SMALL AMOUNT OF BLOOD COMING FROM MOUTH AND NOSE - MD COLLINS NOTIFIED. CRITICAL VALUES FOR LACTIC AND HGB RECIEVED - PROVIDERS SUELLEN AND DENNIS NOTIFIED. DISCUSSED WITH PCU AND ICU CHARGE NURSE - PATIENT TRANSFERED TO ICU 8. REPORTED OFF TO IGNACIO WILLSON AT APPROX 0205.
[2019-02-11 00:17] LABS: Hematocrit 22.7 % (37.0-53.0); Hemoglobin 7.7 g/dL (13.5-17.5)
[2019-02-11 00:31] LABS: International Normalized Ratio 1.42; Prothrombin Time Results 14.6 Sec (9.7-11.5)
[2019-02-11 01:52] LABS: Hematocrit 16.5 % (37.0-53.0); Hemoglobin 5.7 g/dL (13.5-17.5)
[2019-02-11 02:03] LABS: International Normalized Ratio 1.47
[2019-02-11 02:11] LABS: Alanine Aminotransfer (ALT/SGP 34 U/L (12-78); Albumin, Blood 1.6 g/dL (3.4-5.0); Albumin/Globulin Ratio 0.5 (0.8-1.8); Alk Phos 124 U/L (50-136); Anion Gap 6 mmol/L (6-16); Aspartate Aminotrans (AST/SGOT 50 U/L (12-37); Bilirubin, Total 1.8 mg/dL (0.1-1.0); Blood Urea Nitrogen 22 mg/dL (8-24); Bun/Creatinine Ratio 19.8 (12.0-20.0); CO2, Blood 26 mmol/L (21-32); Calcium, Blood 6.9 mg/dL (8.5-10.1); Chloride, Blood 102 mmol/L (98-108); Creatinine, Blood 1.11 mg/dL (0.60-1.20); Glomerular Filtration Rate >60 (60-); Glucose, Blood 99 mg/dL (70-99); Potassium, Blood 4.8 mmol/L (3.5-5.5); Sodium, Blood 134 mmol/L (136-145); Total Protein, Blood 4.6 g/dL (6.4-8.2)
--- NOTE | 2019-02-11 03:00 | NUR ---
PT TRANSFERED TO ICU8 FROM PCU-16. PT TRANSFERED BY BED. PT WAS HYPOTENSIVE, EYES OPEN, ABLE TO NOD YES/NO, CONFIRMED SISTER'S NAME IS NIVIA, STATES HE DOES NOT WANT HER CALLED THAT HE HAS BEEN MOVED TO ICU. PRBC'S PLACED ON PRESSURE BAG, AND LEVOPHED WAS STARTED 5MCG/MIN R AC IV. SPOKE W DR COLLINS RE PT LABS & STATUS. HE REQUESTED NG TO BE PLACED TO CHECK FOR GASTRIC BLEEDING. NG PLACED L NARE WO DIFF. IRRIGATED W H2O 100ML W TANNISH GASTRIC CONTENTS, NO BLOOD OBSERVED FROM SUCTION. NG DC'D PER DR COLLINS. DR COLLINS TO CALL DR CENTENO. WILL TRANSFUSE 2 MORE UNITS PRBC'S.
[2019-02-11 03:34] LABS: Hematocrit 20.8 % (37.0-53.0); Hemoglobin 7.2 g/dL (13.5-17.5); Mean Corpuscular HGB 33.3 pg (26.0-34.0); Mean Corpuscular HGB Conc 34.6 g/dL (31.5-36.5); Mean Platelet Volume 10.1 fL (9.1-12.4); Platelet Count 83 K/mm3 (150-400); RDW Coefficient Variation 21.8 % (11.7-14.2); RDW Standard Deviation 76.1 fL (35.1-46.3); Red Blood Cell Count 2.16 M/mm3 (4.30-5.90); White Blood Cell Count 26.08 K/mm3 (4.00-11.30)
[2019-02-11 03:40] LABS: Mean Corpuscular Volume 96 fL (80-100)
--- NOTE | 2019-02-11 06:30 | NUR ---
PT CONT ALERT, TO VERBAL CONV. BP CONT 80'S GENERALLY & LEVOPHED INCREASED TO 8MCG/MIN. PT HAS REC'D 4 UNITS OF PRBC'S & 2 UNITS OF FFP. PT HAS HAD ONLY ONE STOOL SINCE TRANSFER, BUT ALSO LOTS OF FLATUS WHEN TURNED TO SIDE. PT HAS ONLY PERIPHERAL IV'S, W LEVOPHED INFUSING. R AC SITE CONT CLEAR. CONT TO MONITOR. REPORT TO DAYS.
--- NOTE | 2019-02-11 08:07 | NUR ---
Recieved report from Rody WILLSON. Patient resting in bed supine with HOB at 30 degrees. He is RA and sats 96%. Patient hypotensive and is recieving Levophed , systolic 80 and HR 50-60. He is drowsy and answers in short sentences. He has 18ga IV in RAC dressining intact and site WNL's and is infusing Levophed at 8mcg/kg. He also has 18ga IV in LFA dressing intact and site WNL's and is infusing NS 150 ml/hr and NS TKO. He has Ryder in place witn scant out put. Bilatertal LE edema visible.
--- NOTE | 2019-02-11 09:58 | NUR ---
Dr Barkley and Dr Gonzales by to see patient. Dr Gonzales will be taking to cath to evaluate and assess bleed. Recieved order to place PICC line for better Levophed dosing to monitor SBP. He currently denies any pain. Increased Levophed to 12mcg/min and systolic up to 89 with HR 61. Holding PO meds per Dr Gonzales.
--- NOTE | 2019-02-11 12:17 | NUR ---
Patient has been resting quietly. Levophed remains at 12 mcg/min and systolics in the 90's and HR 60's. Patient awakens easily for care. He had large clotted bloody stool and changed attends and cleaned up. No other changes.
--- NOTE | 2019-02-11 15:00 | NUR ---
Cleaned patient up and changed attends. He had small amount of red blood clotted in attends. Levophed at 11 mcg/min and systolic 90-100's and HR 60's. [facility] will be here soon and transport for procedure.
--- NOTE | 2019-02-11 16:58 | NUR ---
Patient has gone to laboratory chemist at 1615 and remained on same Levophed and tolerating well. He was pushed to laboratory chemist in ICU bed stable
--- NOTE | 2019-02-11 18:08 | NUR ---
Patient returned from clinical laboratory science professor at 1730 and right groin sheath left in incase needing to return for continued bleeding. Patient alert and responsive and is able to express needs. He has attends in place for incontinent bloody stool. He is currently resting. Hooked up art line to she for BP. Levophed has been reduced to 9mcg/min and systolics 90-100's.
--- NOTE | 2019-02-11 20:08 | NUR ---
CALLED DR. COLLINS REGARDING DRAWING ANOTHER H&H WITH ONE UNIT OF BLOOD ON STANDBY. ORDERS TO TRANSFUSE THE ONE UNIT AND REDRAW H&H ONE HOURS AFTER INFUSION.
[2019-02-11 22:05] LABS: Hematocrit 19.4 % (37.0-53.0); Hemoglobin 6.9 g/dL (13.5-17.5)
[2019-02-11 23:20] LABS: Hematocrit 21.2 % (37.0-53.0); Hemoglobin 7.4 g/dL (13.5-17.5)
[2019-02-12 01:51] LABS: Hematocrit 17.2 % (37.0-53.0)
--- NOTE | 2019-02-12 02:00 | NUR ---
DR. COLLINS AT BEDSIDE. NEW ORDERS FOR NPO AFTER 0300 FOR EGD TO TAKE PL[address] WITH ANESTHESIOLOGIST BETWEEN [phone]. NOTIFIED ABOUT CRITICAL LAB RESULTS, WELL 7TH TOTAL BLOOD TRANSFUSION SINCE PT HAS BEEN HERE.
--- NOTE | 2019-02-12 02:46 | NUR ---
ASSUMED PT CARE AT 191 PT RESTING IN BED; PALE APPEARANCE. ALERT AND ORIENTED AND ABLE TO MAKE NEEDS KNOWN. VERY LETHARGIC. LEVOPHED INFUSING AT 9MCG/MIN AND NS AT 150MLS/HR. NO BLOODY LOOSE STOOL NOTED UPON SHIFT CHANGE. HOWEVER, AT APPROXIMATELY 2129 AFTER PERFORMING SHIFT ASSESSMENT, WELL INITIATING BLOOD TRANSFUSION THAT DR. COLLINS HAD ORDERED IT WAS NOTED THAT PT HAD LOOSE, BLOODY STOOL; AT THIS TIME IT WAS NOTED TO BE ON THE UNDER SHEET; THEREFORE, TOTAL BED CHANGE NEEDED. AT APPROXIMATELY 2144 UPON RETURN TO CLEAN AND CHANGE BEDDING; PT'S BLOOD PRESSURES WERE NOTED TO BE 72/41 (50); HR 66 AND PT WAS PUTTING OUT COPIOUS AMOUNTS OF BLOOD AND BLOOD CLOTS FROM RECTUM. INCREASED LEVOPHED AND INITITATED FLUID BOLUS 1L; CALLED DR. COLLINS IMMEDIATELY WITH ORDERS TO COMPLETE 1L FLUID BOLUS AND TRANSFUSE ANOTHER UNIT OF PRBC'S AND TO CALL HOSPITALIST FOR FURTHER ORDERS UNTIL HE COULD COME BY TO SEE PT. CALLED RITA KAHN NP WHO GAVE ORDERS TO HAVE 2 MORE UNITS OF PRBC'S TO BE ON STANDBY AND REDRAW H&H. SECOND PRBC'S AND H&H WAS DRAWN INCREASING FROM 6.9 TO 7.4; WELL BP STABILIZED. AROUND 0135 PT BLOOD PRESSURES WERE NOTED TO BE 73/41 (MAP 49); HR 64 AND PT HAD MORE COPIOUS AMOUNTS OF LATONYA RED BLOOD WITH CLOTS NOTED TO STOOL. INITIATED FLUID BOLUS AGAIN AND SENT SLIP FOR UNIT OF PRBC'S. TRANSFUSED ANOTHER TWO UNITS OF PRBC'S WITH ORDERS FROM DR. KEN TO INITIATE A 500CC FLUID BOLUS, TWO UNITS OF FFP, ALBUMIN, VASOPRESSIN, AND ANOTHER H&H POST TRANSFUSION. POST FFP AND PRBC'S TRANFUSIONS PT'S BP'S STABILIZED AND LEVOPHED WAS ABLE TO BE TITRATED DOWN TO 3. DR. COLLINS AT BEDSIDE AT 0200 AND STATED TO BE NPO AFTER 0300 WITH PLANS TO SCOPE BETWEEN 0500 AND 0600. WILL CONTINUE TO MONITOR FOR BLEEDING AND UPDATE MD ACCORDINGLY.
[2019-02-12 03:57] LABS: Hemoglobin 6.2 g/dL (13.5-17.5); Mean Corpuscular HGB 30.4 pg (26.0-34.0); Mean Corpuscular HGB Conc 34.4 g/dL (31.5-36.5); Mean Platelet Volume 9.5 fL (9.1-12.4); Platelet Count 53 K/mm3 (150-400); RDW Standard Deviation 51.8 fL (35.1-46.3); Red Blood Cell Count 2.04 M/mm3 (4.30-5.90); White Blood Cell Count 10.05 K/mm3 (4.00-11.30)
[2019-02-12 04:00] LABS: Mean Corpuscular Volume 88 fL (80-100)
[2019-02-12 04:10] LABS: Anion Gap 9 mmol/L (6-16); Blood Urea Nitrogen 30 mg/dL (8-24); Bun/Creatinine Ratio 25.9 (12.0-20.0); CO2, Blood 20 mmol/L (21-32); Calcium, Blood 6.4 mg/dL (8.5-10.1); Chloride, Blood 106 mmol/L (98-108); Creatinine, Blood 1.16 mg/dL (0.60-1.20); Glomerular Filtration Rate >60 (60-); Glucose, Blood 150 mg/dL (70-99); Potassium, Blood 4.9 mmol/L (3.5-5.5); Sodium, Blood 135 mmol/L (136-145)
[2019-02-12 04:11] LABS: International Normalized Ratio 1.66; Prothrombin Time Results 16.8 Sec (9.7-11.5)
--- NOTE | 2019-02-12 04:12 | NUR ---
DR. KEN CALLED REGARDING PT ACTIVELY BLEEDING AGAIN WITH LOW BLOOD PRESSURES 88/42 (MAP 52) WITH ORDERS TO TRANSFUSE ONE MORE UNIT OF BLOOD AND RECHECK H&H IN FOUR HOURS POST TRANSFUSION.
--- NOTE | 2019-02-12 06:40 | NUR ---
END OF SHIFT SUMMARY PT EXPERIENCED ONE MORE EPISODE OF ACTIVE BLEEDING AROUND 0400; TRANSFUSED ONE MORE UNIT OF PRBC'S PER DR. KEN ORDERS; FURTHER ORDERS TO REDRAW H&H IN FOUR HOURS. PT HAS HAD A TOTAL OF 6 BED CHANGES D/T LOOSE LATONYA, RED BLOODY STOOLS. PT HAD A TOTAL OF 5 UNITS OF PRBC'S TRANSFUSED THIS SHIFT, TWO UNITS OF FFP, AND 1.5L OF FLUIDS BOLUSED. RIGHT GROIN SHEATH REMAINS IN PLACE; DRESSING REQUIRED TO BE RE-DRESSED TWICE THIS SHIFT. SAFE SET AND ARTERIAL LINE CONNECTED TO SHEATH; AREA IS SOFT UPON PALPATION WITH NO ACTIVE BLEEDING OR HEMATOMA NOTED. PT HAD PITTING EDEMA NOTED TO BILATERAL THIGHS, ANKLES, AND FEET AT THE BEGINNING OF SHIFT; TOWARD THE END OF THE SHIFT PT HAS BECOME MORE EDEMATOUS NOTING +4 TO BILATERAL THIGHS AND +2 TO BILATERAL FEET/ANKLES. LUNG SOUNDS REMAIN CLEAR T/O. PT HAS BEEN IN NSR HR 60-70'S WITH ECTOPI NOTED UPON TURNING ON RIGHT HAND SIDE DURING GINGER CARE. MINIMAL URINE OUTPUT THIS SHIFT; TOTAL OF 250MLS DOCUMENTED OUTPUT THIS SHIFT; HOWEVER, A TOTAL OF 2L ACCOUNTED FOR IN CANNISTER; APPROXIMATLY 500CC LOST IN UNMEASURABLE AMOUNTS. CALL LIGHT WITHIN REACH; PT ABLE TO MAKE HIS NEEDS KNOWN. PLANS ARE FOR DR. COLLINS TO SCOPE AROUND 1700 TODAY. WILL CONTINUE TO MONITOR UNTIL REPORT IS HANDED OFF TO ONCOMING RN.
--- NOTE | 2019-02-12 07:23 | NUR ---
ASSUMED CARE REPORT FROM DEMETRIS CALLE. WARM BLANKETS FROVIDED FOR TEMP 96.6. VASOPRESSIN 0.04 UNITS/MIN, LEVOPHED 10 MCG/MIN
--- NOTE | 2019-02-12 07:43 | NUR ---
BP CONTINUES TO TREND DOWN. CONSULTED DR. CARRINGTON. STAT H/H ORDERED
--- NOTE | 2019-02-12 07:57 | NUR ---
MD VISIT DR. CARRINGTON IN. HE SPOKE TO DR. COLLINS AND SCOPE MOVED TO AFTERNOON
[2019-02-12 08:02] LABS: Hematocrit 19.2 % (37.0-53.0); Hemoglobin 6.5 g/dL (13.5-17.5)
[2019-02-12 08:50] LABS: PCO2 Arterial 29.4 mmHg (35-45); pH Blood Arterial 7.41 (7.35-7.45)
[2019-02-12 08:56] LABS: Mean Platelet Volume 10.1 fL (9.1-12.4); Platelet Count 66 K/mm3 (150-400)
[2019-02-12 09:10] LABS: International Normalized Ratio 1.94; Prothrombin Time Results 19.4 Sec (9.7-11.5)
[2019-02-12 09:13] LABS: Calcium, Blood 6.1 mg/dL (8.5-10.1); Magnesium, Blood 1.6 mg/dL (1.6-2.4)
--- NOTE | 2019-02-12 10:19 | NUR ---
GEN RN FROM PALLIATIVE CARE IN TO SEE PATIENT
--- NOTE | 2019-02-12 10:56 | NUR ---
Initial Visit: Palliative Care Consult for Medically Fragile and Readmission. Pt is A&Ox2 and denies pain at this time. Pt not able to state appropriate place or reason for stay. Pt deniese dyspnea at this time. Engaged in therapeutic discussion regarding goals of care. Discussed plan for procedure today. Engaged in discussion regarding disease process and Pt states "Do we have to have this conversation right now". This RN asked if the discussion was causing anxiety and Pt states "yes". Validated his concerns and complied with his request. Pt reports no other concerns at this time. Pt is agreeable for therapeutic F/U during his hospital stay. Spoke with bedside nurse Amaya and discussed case. Called and spoke with Pt's sister Elma and engaged in theapeutic discussion of disease process and hospice as an option if Pt so chooses. Encouraged Elma to have discussion with Pt in the future to determine his goals of care as the disease process takes it coarse. Listened as Elma reports during Pt's stay at SNF Pt would experience frequent confusion then would have moments of clarity. Elma requests that staff keep in contact with her and keep her updated on condition and plan. She also requests for care managers to contact her with discharge plan and would like Pt to return to [facility] for rehabilitation if SNF is planned at discharge. She states she does not want Pt to go to [facility]. Called and spoke with luana Grullon and relayed Elma's requests. Palliative Care will remain available.
[2019-02-12 15:07] LABS: Hematocrit 22.7 % (37.0-53.0); Hemoglobin 7.8 g/dL (13.5-17.5)
[2019-02-12 19:16] LABS: Hematocrit 18.1 % (37.0-53.0); Hemoglobin 6.4 g/dL (13.5-17.5)
--- NOTE | 2019-02-12 19:36 | NUR ---
02/12/191935 Sofia Burns EQUIPMENT TO ICU 8.
--- NOTE | 2019-02-12 19:57 | NUR ---
SUMMARY SHORTLY AFTER 1800, BLOOD PRESSURE DROPPED. PATIENT HAD STOOLED A LARGE AMOUNT OF LATONYA RED BLOOD. NOTED PICC LINE CATHETER HAD BEEN PULLED OUT AND LEVOPHED AND VASOPRESSIN WAS RUNNING INTO LINEN. CHANGED TO RIGHT AC. DR. THOMAS WAS IN UNIT AND PLACED A CENTRAL LINE. VERSED WAS GIVEN AT 1839. LINE PLACED LEFT IJ AND CONFIRMED BY CXR AND READ BY DR. THOMAS. SISTER NIVIA WAS CALLED AND CONSENTED TO CENTRAL LINE PLACEMENT. PATIENT WAS PLACED IN SWR AT 1900 TO PROTECT CENTRAL LINE. PRBC AND STAT H/H ORDERED. PRBC INFUSING NOW. DEMETRIS LYONS AND DEMETRIS MARROQUIN OF DAY SURGERY IN PREPPING FOR EGD. REPORT GIVEN TO DEMETRIS CALLE
--- NOTE | 2019-02-12 20:06 | NUR ---
SPOKE WITH DR. DOMINGUEZ REGARDING MASSIVE BLOOD TRANSFUSION PROTOCOL AND PER PT'S LABS HE REQUIRES BOTH FFP AND CRYOPRECIPITATE.
[2019-02-12 22:32] LABS: PCO2 Arterial 29.6 mmHg (35-45); PO2 Arterial 254 mmHg (80-100)
--- NOTE | 2019-02-13 02:06 | NUR ---
ASSUMED PT CARE AT 1914 UPON START OF SHIFT PT RECENTLY HAD A CENTRAL LINE PLACED TO LEFT IJ BY DR. THOMAS AND ENDO WAS PREPPING ROOM FOR PT'S EGD. CONVERSED WITH SURGICAL STAFF IN REGARDS TO ORDERING MORE FFP AND CRYOPRECIPITATE ACCORDING TO PT'S LAB VALUES AND LOW BLOOD PRESSURES WITH PT STILL ACTIVELY BLEEDING; IT WAS AGREED THAT DUE TO LABS AND PT HAVING THE MASSIVE TRANSFUSION PROTCOL TO GO AHEAD AND ORDER THE BLOOD PRODUCTS BECAUSE THE PATIENT WAS MOST LIKELY GOING TO NEED THEM. PT HAD BEEN VERY HYPOTENSIVE PRIOR AND DURING SCOPE WITH DEMETRIS GONSALEZ IN ROOM TITRATING LEVOPHED DURING PROCEDURE. AT APPROXIMATELY 2037, PT WAS SEVERELY HYPOTENSIVE WITH MAP IN THE 30'S; LEVOPHED AT 30MCG/MIN WITH FFP BEING DUMPED IN AT THIS POINT D/T BLOOD PRESSURE CONTINUING TO TREND DOWN. ASKED SURGICAL STAFF TO HELP ASSIST PT ON HIS BACK IN ORDER TO GET AN ADEQUATE BLOOD PRESSURE READING FROM ARTERIAL LINE. UPON REPOSITIONING PT TO BACKSIDE AROUND 2043 IT WAS NOTED THAT PT WAS AGONAL BREATHING; CAROTID PULSE FELT AND PALPABLE, BUT WEAK. DR. POSADAS IMMEDIATLY STARTED BAGGING PT WHILE RSI KIT AND INTUBATION TRAY WERE BEING SET UP; 100MG SUCCINATE ADMINISTERED AT [address] POSADAS INTUBATED WITH 8.0 ETT MEASURING 24 CM AT THE LIP; VENT SETTINGS: AC 16, TV 450, FIO2 70%, PEEP 5 WITH OXYGEN SATURATIONS 95% AND RR 20'S. AFTER INTUBATION PT CONTINUED BLOOD PRODUCT TRANSFUSION; HE RECEIVED TWO UNITS OF PRBC'S, TWO UNITS OF FFP, AND TWO UNITS OF CRYOPRECIPITATE. DR. THOMAS NOTIFIED AND ENTERED FURTHER ORDERS FOR VENT MANAGEMENT, SEDATION, AND ABG. ABG CAME BACK WITH CRITICAL HEMOGLOBIN OF 5.7; DR. DOMINGUEZ CALLED REGARDING CHECKING CXR TO CONFIRM ETT PLACEMENT, WELL NOTIFIED OF CRITICAL RESULT; NEW ORDERS TO TRANSFUSE ANOTHER [address] THOMAS CALLED BACK ASKING FOR AN UPDATE; NEW ORDERS TO D/C NS AT 150MLS/HR. PT IS CURRENTLY PROPOFOL 10MCG/KG/MIN, LEVOPHED AT 30MCG/MIN, VASOPRESSIN 0.04MCG/MIN, NS TKO, AND SANDOSTATIN AT 25MLS/HR. PT HAS RECEIVED A TOTAL OF 4 UNITS OF PRBC'S, 2 UNITS FFP, AND 2 UNITS CRYOPRECIPITATE. BLOOD PRESSURES LABILE, BUT ARTERIAL LINE REMAINS TO RIGHT GROIN SHEATH; TITRATING LEVOPHED TO MAINTAIN MAP GREATER THAN 65. WILL CONTINUE TO MONITOR FOR SIGNIFICANT CHANGES AND WILL UPDATE PHYSICIANS ACCORDINGLY.
[2019-02-13 03:27] LABS: Hematocrit 24.7 % (37.0-53.0); Hemoglobin 8.8 g/dL (13.5-17.5); Mean Corpuscular HGB Conc 35.6 g/dL (31.5-36.5); Mean Corpuscular Volume 87 fL (80-100); Mean Platelet Volume 11.1 fL (9.1-12.4); NRBC ABSOLUTE 0.03 K/mm3 (0.00-0.02); NRBC Auto 0.1 /100 WBC (0.0-0.2); RDW Coefficient Variation 14.9 % (11.7-14.2); RDW Standard Deviation 47.5 fL (35.1-46.3); Red Blood Cell Count 2.84 M/mm3 (4.30-5.90); White Blood Cell Count 20.45 K/mm3 (4.00-11.30)
[2019-02-13 03:29] LABS: Platelet Count 50 K/mm3 (150-400)
[2019-02-13 03:39] LABS: International Normalized Ratio 1.7; Prothrombin Time Results 17.2 Sec (9.7-11.5)
--- NOTE | 2019-02-13 05:51 | NUR ---
END OF SHIFT SUMMARY PT REMAINS INTUBATED AND SEDATED WITH PROPOFOL 10MCG/KG/MIN. VENT SETTINGS: AC 16, TV 450, FIO2 40%, PEEP 5, RR 16, OXYGEN SATURATIONS > 90%. PT ABLE TO OPEN EYES AND FOLLOW COMMANDS WITH SEDATION VACATION THIS SHIFT. TEMP LUU PROBE READING TEMPERATURES OF 94; HOWEVER, TEMPORAL TEMPERATURES READING 95-96 DEGREES. WRAPPED PT IN WARM BLANKETS AND INCREASED HEAT IN ROOM. MOST RECENT TEMP 97. LUNG SOUNDS REMAIN CLEAR T/O; PT REMAINS VERY EDEMATOUS WITH DEEP PITTING EDEMA TO BACK AND BILATERAL THIGHS; MINIMAL URINE OUTPUT WITH 120CC OUT FOR ENTIRE SHIFT. LEVOPHED CONTINUES TO BE TITRATED TO EFFECT WITH IT CURRENTLY AT 30MCG/MIN; VASOPRESSIN AT 0.04UNITS/MIN; AND SANDOSTATIN AT 25MLS/HR. PT APPEARS VERY PALE AND JAUNDICE IN COLOR. SCLERA EDEMA IS NOTED WITH JAUNDICE ALSO NOTED. PT APPEARS COMFORTABLE WRAPPED IN WARM BLANKETS. NO FURTHER UNITS OF BLOOD TRANSFUSED SINCE LAST ENTRY NOTE. WILL CONTINUE TO MONITOR UNTIL REPORT IS HANDED OFF TO DAY SHIFT RN.
[2019-02-13 08:30] LABS: Albumin, Blood 1.5 g/dL (3.4-5.0); Anion Gap 10 mmol/L (6-16); Blood Urea Nitrogen 40 mg/dL (8-24); Bun/Creatinine Ratio 23.8 (12.0-20.0); CO2, Blood 17 mmol/L (21-32); Calcium, Blood 6.4 mg/dL (8.5-10.1); Chloride, Blood 105 mmol/L (98-108); Creatinine, Blood 1.68 mg/dL (0.60-1.20); Glomerular Filtration Rate 45 (60-); Glucose, Blood 183 mg/dL (70-99); Phosphorus, Blood 5.7 mg/dL (2.5-4.9); Potassium, Blood 5.6 mmol/L (3.5-5.5); Sodium, Blood 132 mmol/L (136-145)
--- NOTE | 2019-02-13 10:51 | NUR ---
DR. COLLINS CALLED AND GAVE ORDERS FOR GOLYTELY WITH PLANS FOR SCOPE THIS EVENING AROUND 17 OR 1800.
[2019-02-13 12:07] LABS: Hematocrit 24.3 % (37.0-53.0); Hemoglobin 8.7 g/dL (13.5-17.5)
--- NOTE | 2019-02-13 13:06 | NUR ---
REASSESSMENT: PT REMAINS INTUBATED AND LIGHTLY SEDATED. HIS 2 NIECES AND SISTER ARE AT THE BEDSIDE AND HAVE SPOKE EXTENSIVELY WITH DR. OHARA AND CURRENTLY SPEAKING WITH PALLIATIVE CARE. PT CONTINUES ON 32 MCG/MIN LEVOPHED AND VASOPRESSIN GTTS TO KEEP MAP ABOVE 60MMHG. PT HAS NOT HAD ANY STOOLS THIS SHIFT. GOLYTELY STARTED AT 1130 THROUGH OG. LUNGS REMAIN CLEAR, DIM IN THE BASES, MINIMAL SECRETIONS. SR. HYPOACTIVE BOWEL TONES. SKIN IS PALE, JAUNDICED AND EDEMATOUS. NO URINE OUTPUT SO FAR THIS SHIFT, DR. OHARA AWARE.CONTINUING TO MONITOR.
--- NOTE | 2019-02-13 13:45 | NUR ---
Pt visit this afternoon. Pt is intubated and appears comfortable at this time. Pt's sister Elma and her children are present during visit. Engaged in therapeutic discussion regarding goals of care. Listened as family expressed concerns and difficulty in how to make decisions on Pt's behalf. Suggested to take into consider Pt's end stage disease, comfort, quality of life, and Pt's wishes. Elma tearful at times during visit and this RN offered emotional support. Elma and family are considering making the Pt limited code. They report they will dilerberate and decide before leaving today. They report they would like to keep him intubated and receiving treatment over the next couple of days to allow chance for improvement of condition. No other concerns reported at this time. Palliative Care will remain available.
--- NOTE | 2019-02-13 14:22 | NUR ---
Discussed Pt's estranged duaghter. Family report Pt's duaghter ended her relationship due to his drinking. Family reports daughter moved to a different state and . Family reports attemptin several times in the past to locate her with no success. Family report they would like to continue current treatment and will make decisions intermittently as needed. They report for now they would like to focus on the upcoming colonoscopy and will make decisions as more results become available.
--- NOTE | 2019-02-13 18:20 | NUR ---
DR. COLLINS ROUNDED ON PT. DISCUSSED PT'S CONDITION AND CURRENT PLAN OF CARE WITH PT'S SISTER NIVIA AT BEDSIDE. PLAN AT THIS TIME TO MAKE PT DNR AND TO HOLD OFF ON COLONOSCOPY FOR TONIGHT AND RE-EVALUATE TOMORROW.
--- NOTE | 2019-02-13 18:39 | NUR ---
SHIFT SUMMARY: PT REMAINS INTUBATED AND LIGHTLY SEDATED. HE OPENS EYES TO LOUD VOICE. HE REMAINS ON PRESSORS, BUT THEY HAVE BEEN ABLE TO BE TITRATED DOWN THROUGHOUT THE SHIFT. LUNGS ARE CLEAR, DIM IN THE BASES. SR. PT RECEIVED GOLYTELY IN PREP FOR COLONOSCOPY BUT DR. COLLINS CAME BY AND DECIDED NOT TO DO IT AFTER SPEAKING WITH PT'S FAMILY. PT STILL HAVING LIQUID STOOLS. RECTAL TUBE WAS PUT IN THIS AFTERNOON WITH GOLYTELY ADMINISTRATION. LUU REMAINS IN PLACE BUT ONLY 15ML OF URINE OUTPUT THIS SHIFT. FAMILY HAS BEEN AT THE BEDSIDE AND UPDATED THROUGHOUT THE DAY. NO OTHER CHANGES FROM EARLIER ASSESSMENTS.
--- NOTE | 2019-02-13 19:26 | NUR ---
ASSUMED PT CARE AT 1915 PT REMAINS INTUBATED AND SEDATED. PROPOFOL 10MCG/KG/MIN; PT STILL ABLE TO OPEN EYES UPON VERBAL STIMULI, BUT APPEARS COMFORTABLE. VENT SETTINGS: AC 16, TV 450, PEEP 5, FIO2 40%, RR 17, OXYGEN SATURATIONS 95%. NSR WITH HR 70'S. RECTAL TUBE IN PLACE WITH DARK BROWN/MAROON OUTPUT S/P GOLYTELY BOWEL PREP FOR SCHEDULED COLONOSCOPY. HOWEVER, PLANS PER REPORT IS FOR DR. COLLINS TO PERFORM COLONOSCOPY SOMETIME TOMORROW. PT CONTINUES WITH LITTLE TO NO URINE OUTPUT. SKIN CONTINUES TO BE PALE/JAUNDICE IN COLOR. PT IS VERY EDEMATOUS WITH DEEP PITTING EDEMA NOTED TO BILATERAL THIGHS AND BACK; +2 PITTING EDEMA TO BLE, ANKLES, AND FEET. SHEATH REMAINS INTACT TO RIGHT GROIN WITH ART LINE CONTINUING TO MONITOR PRESSURES. LEVOPHED AT 10MCG/MIN. VASOPRESSIN 0.04UNITS/MIN, AND SANDOSTATIN AT 25MLS/HR. CENTRAL LINE TO LEFT IJ REMAINS CDI. WILL CONTINUE TO MONITOR FOR ANY SIGNIFICANT CHANGES AND UPDATE PHYSICIAN ACCORDINGLY.
[2019-02-13 20:48] LABS: Hemoglobin 5.5 g/dL (13.5-17.5)
[2019-02-13 20:50] LABS: Hematocrit 14.9 % (37.0-53.0)
[2019-02-14 04:12] LABS: BASOPHILS ABSOLUTE AUTO 0.02 K/mm3 (0.00-0.23); BASOPHILS PERCENT AUTO 0 % (0-2); EOSINOPHILS ABSOLUTE AUTO 0.14 K/mm3 (0.00-0.68); EOSINOPHILS PERCENT AUTO 1 % (0-6); Hematocrit 19.6 % (37.0-53.0); Hemoglobin 6.8 g/dL (13.5-17.5); IMMATURE GRAN ABSOLUTE AUTO 0.13 K/mm3 (0.00-0.10); IMMATURE GRAN PERCENT AUTO 1 % (0-1); LYMPHOCYTES ABSOLUTE AUTO 1.76 K/mm3 (0.84-5.20); LYMPHOCYTES PERCENT AUTO 14 % (21-46); MONOCYTES ABSOLUTE AUTO 1.05 K/mm3 (0.16-1.47); MONOCYTES PERCENT AUTO 8 % (4-13); Mean Corpuscular HGB Conc 34.7 g/dL (31.5-36.5); Mean Corpuscular Volume 86 fL (80-100); Mean Platelet Volume 10.8 fL (9.1-12.4); NEUTROPHILS ABSOLUTE AUTO 9.79 K/mm3 (1.96-9.15); NEUTROPHILS PERCENT AUTO 76 % (41-73); NRBC ABSOLUTE 0.06 K/mm3 (0.00-0.02); NRBC Auto 0.5 /100 WBC (0.0-0.2); RDW Coefficient Variation 15.5 % (11.7-14.2); RDW Standard Deviation 47.9 fL (35.1-46.3); Red Blood Cell Count 2.27 M/mm3 (4.30-5.90); White Blood Cell Count 12.89 K/mm3 (4.00-11.30)
[2019-02-14 04:17] LABS: Platelet Count 37 K/mm3 (150-400)
[2019-02-14 04:23] LABS: International Normalized Ratio 1.71; Prothrombin Time Results 17.3 Sec (9.7-11.5)
[2019-02-14 04:30] LABS: Alanine Aminotransfer (ALT/SGP 27 U/L (12-78); Albumin, Blood 2.4 g/dL (3.4-5.0); Alk Phos 35 U/L (50-136); Anion Gap 10 mmol/L (6-16); Aspartate Aminotrans (AST/SGOT 59 U/L (12-37); Bilirubin, Total 3.2 mg/dL (0.1-1.0); Blood Urea Nitrogen 48 mg/dL (8-24); Bun/Creatinine Ratio 20.7 (12.0-20.0); CO2, Blood 21 mmol/L (21-32); Calcium, Blood 6.7 mg/dL (8.5-10.1); Chloride, Blood 103 mmol/L (98-108); Creatinine, Blood 2.32 mg/dL (0.60-1.20); Globulin, Blood 1.2 g/dL (2.2-4.0); Glomerular Filtration Rate 31 (60-); Glucose, Blood 121 mg/dL (70-99); Phosphorus, Blood 6.5 mg/dL (2.5-4.9); Potassium, Blood 4.4 mmol/L (3.5-5.5); Sodium, Blood 134 mmol/L (136-145); Total Protein, Blood 3.6 g/dL (6.4-8.2)
--- NOTE | 2019-02-14 06:41 | NUR ---
END OF SHIFT SUMMARY REMAINS INTUBATED/SEDATED. PROPOFOL CURRENTLY AT 30MCG/KG/MIN FOR COMFORT. PT ABLE TO OPEN EYES AND SHAKE HEAD YES/NO TO QUESTIONS WITH PROPOFOL AT 20MCG/KG/MIN. VENT SETTINGS REMAIN UNCHANGED. HOWEVER, OXYGEN SATURATIONS TENDED TO DECREASE ANYTIME THE PT WAS REPOSITIONED ON BACKSIDE OR LEFT SIDE; THEREFORE, PT REMAINED ON RIGHT SIDE MOST OF NIGHT WITH FREQUENTLY SHIFTING PILLOWS TO HELP REDISTRIBUTE WEIGHT. SCANT AMOUNT OF THICK, WHITE SECRETIONS NOTED. NSR WITH HR 60-70'S. VASOPRESSIN REMAINS AT 0.04UNITS/MIN, LEVOPHED TITRATED TO EFFECT T/O SHIFT; CURRENTLY AT 6MCG/MIN. PT REMAINS VERY EDEMATOUS WITH DEEP PITTING EDEMA TO BILATERAL HIP AND THIGHS, +3 PITTING EDEMA NOTED TO BLE'S, SCLERA EDEMA, AND ASCITES NOTED TO ABDOMEN; PT HAS HAD MINIMAL OUTPUT WITH 100CC OUT T/O SHIFT. PT IS VERY PALE/JAUNDICE IN APPEARANCE. CENTRAL LINE REMAINS CDI TO LEFT IJ WITH SANDOSTATIN INFUSING AT 25MLS/HR, WELL BLOOD AT 125MLS/HR. PT HAS RECEIVED THREE UNITS OF BLOOD THIS SHIFT. PT APPEARS COMFORTABLE AT THIS TIME. NO FAMILY AT BEDSIDE T/O NIGHT. WILL CONTINUE TO MONITOR UNTIL REPORT IS HANDED OFF TO ONCOMING RN.
--- NOTE | 2019-02-14 08:10 | NUR ---
ASSUMED CARE AT 0700 REPORT FROM DEMETRIS CALLE. PRBC'S TRANSFUSING. LEVOPHED AT 6 MCG/MIN. VASOPRESSIN CONTINUES. FLEXISEAL IN PLACE WITH CALDWELL FLUID DRAINING. PT IS INTUBATED, VENTILATED AND RESTRAINED.
--- NOTE | 2019-02-14 08:13 | NUR ---
MD VISIT DR. GIBSON IN BEFORE 0800
--- NOTE | 2019-02-14 08:39 | NUR ---
CAT RT NOTIFIED OF CUFF LEAK. RESOLVED
--- NOTE | 2019-02-14 10:58 | NUR ---
MD VISIT DR. OHARA IN
[2019-02-14 12:09] LABS: Hematocrit 22.3 % (37.0-53.0)
--- NOTE | 2019-02-14 12:54 | NUR ---
DR. COLLINS CALLED. HE WILL NOT BE PERFORMING COLONOSCOPY. NO BLOOD IN RECTAL TUBE. FLUSHED WITH 500 CC WATER. SISTER NOTIFIED OF EXPECTED DECLINE. SHE WOULD LIKE TO WAIT AND MAKE PT COMFORT CARE ON SUNDAY THE FAMILY CAN GATHER AT THAT TIME
[2019-02-14 14:20] LABS: International Normalized Ratio 1.58; Prothrombin Time Results 16.1 Sec (9.7-11.5)
[2019-02-14 18:37] LABS: Hematocrit 18.9 % (37.0-53.0); Hemoglobin 6.7 g/dL (13.5-17.5)
--- NOTE | 2019-02-14 19:15 | NUR ---
ASSUMED CARE REPORT AND ASSESSMENT COMPLETED. PT INTUBATED WITH VENT SETTINGS OF AC16/450/40%/5. SEDATION VIA PROPOFOL AT 30MCG/KG/MIN. PT RESPONDS TO PAIN STIM WITH ORAL CARE. AM SHIFT H&H RETURNED WITH A RAMYA, DR COLLINS IN UNIT AND GAVE ORDERS TO TRANSFUSE 2 UNITS PRBC'S. DOUBLE STRENGTH LEVO AT 4MCG/MIN, VASOPRESSIN AT 0.04 UNITS/MIN. BICARB GTT AT 125ML/HR, SANDOSTATIN AT 25ML/HR AND NS TKO. PT'S NIECE MADHAV IN ROOM, UPDATED ON PLAN FOR ADDITIONAL PRBC'S OVERNIGHT. PER NIECE, HER MOM NIVIA WILL BE IN SUNDAY FOR POTENTIAL STATUS CHANGE TO COMFORT CARE. VSS CURRENTLY STABLE, ECG SHOWS NSR & O2 SATS 97-100%.
--- NOTE | 2019-02-14 19:16 | NUR ---
DR. COLLINS IN. 2 UNITS PRBC ORDERED
--- NOTE | 2019-02-14 19:41 | NUR ---
REPORT TO DEMETRIS VALLES
--- NOTE | 2019-02-14 22:59 | NUR ---
UPDATE NOTED INCREASED BLOOD OOZING FROM ORAL MUCOUSA, RECTAL TUBE AND FROM URETHRA. WILL CONTINUE TO MONITOR. #2 PRBC CONTINUES TO INFUSE.
[2019-02-15 00:17] LABS: Hematocrit 23.6 % (37.0-53.0); Hemoglobin 8.2 g/dL (13.5-17.5)
[2019-02-15 05:36] LABS: BASOPHILS ABSOLUTE AUTO 0.02 K/mm3 (0.00-0.23); BASOPHILS PERCENT AUTO 0 % (0-2); EOSINOPHILS ABSOLUTE AUTO 0.17 K/mm3 (0.00-0.68); EOSINOPHILS PERCENT AUTO 3 % (0-6); Hematocrit 22.5 % (37.0-53.0); Hemoglobin 8.2 g/dL (13.5-17.5); Mean Corpuscular HGB 31.1 pg (26.0-34.0); Mean Corpuscular HGB Conc 36.4 g/dL (31.5-36.5); Mean Corpuscular Volume 85 fL (80-100); Mean Platelet Volume 9.8 fL (9.1-12.4); NRBC ABSOLUTE 0.04 K/mm3 (0.00-0.02); NRBC Auto 0.6 /100 WBC (0.0-0.2); RDW Coefficient Variation 15.9 % (11.7-14.2); RDW Standard Deviation 48.6 fL (35.1-46.3); Red Blood Cell Count 2.64 M/mm3 (4.30-5.90); White Blood Cell Count 6.33 K/mm3 (4.00-11.30)
[2019-02-15 05:39] LABS: IMMATURE GRAN ABSOLUTE AUTO 0.04 K/mm3 (0.00-0.10); IMMATURE GRAN PERCENT AUTO 1 % (0-1); LYMPHOCYTES ABSOLUTE AUTO 0.75 K/mm3 (0.84-5.20); LYMPHOCYTES PERCENT AUTO 12 % (21-46); MONOCYTES ABSOLUTE AUTO 0.34 K/mm3 (0.16-1.47); MONOCYTES PERCENT AUTO 5 % (4-13); NEUTROPHILS ABSOLUTE AUTO 5.01 K/mm3 (1.96-9.15); NEUTROPHILS PERCENT AUTO 79 % (41-73)
[2019-02-15 05:40] LABS: Platelet Count 27 K/mm3 (150-400)
[2019-02-15 05:48] LABS: International Normalized Ratio 1.57
[2019-02-15 05:56] LABS: Albumin, Blood 2.9 g/dL (3.4-5.0); Anion Gap 10 mmol/L (6-16); Blood Urea Nitrogen 43 mg/dL (8-24); Bun/Creatinine Ratio 21.7 (12.0-20.0); CO2, Blood 24 mmol/L (21-32); Calcium, Blood 7.2 mg/dL (8.5-10.1); Chloride, Blood 100 mmol/L (98-108); Creatinine, Blood 1.98 mg/dL (0.60-1.20); Glomerular Filtration Rate 37 (60-); Glucose, Blood 124 mg/dL (70-99); Phosphorus, Blood 4.9 mg/dL (2.5-4.9); Potassium, Blood 3.2 mmol/L (3.5-5.5); Sodium, Blood 134 mmol/L (136-145)
--- NOTE | 2019-02-15 07:06 | NUR ---
SHIFT SUMMARY PT REMAINS INTUBATED AT AC16/450/30%/5, SEDATED VIA PROPOFOL AT 30MCG/KG/MIN. LEVOPHE AT 4MCG/MIN, SANDOSTAIN AT 25ML/HR, VASOPRESSIN AT 0.04 UNITS/MIN AND BICARB AT 125ML/HR. CALL TO DR OHARA THIS AM FOR PLATELETS OF 27 AND K+ OF 3.2. KCL STARTED, AWAITING PLATELETS. THIS AM WITH 0600 TURN, RECTAL BLEEDING NOTED IN RECTAL TUBE BUT APPEARS TO HAVE STOPPED OF THIS WRITING. VSS, ECG SHOWS SR AND O2 SATS 92-95%. OG CLAMPED, UOP IMPROVED THIS SHIFT. REPORT TO KIRSTEN.
--- NOTE | 2019-02-15 07:30 | NUR ---
BEGINNING OF SHIFT Assumed care at 0700 with Mikala WILLSON. Bedside report recieved from Carla WILLSON. Levophed infusing at 4 mcg/min. Vasopressin 0.04 units/min. MAP 75-80. Bleeding noted from gums with oral care. Bright red drainage noted in rectal tube. Dr Llanos in to see pt. Plan of care discussed. No new orders at this time.
--- NOTE | 2019-02-15 08:15 | NUR ---
DR OHARA IN TO SEE PT Plan of care discussed. Provider aware of bleeding from gums and bright red drainage in rectal tube. Vasopressin turned off. Will continue to monitor BP and bleeding.
--- NOTE | 2019-02-15 10:12 | NUR ---
UPDATE Pt remains off vasopressin. Levophed currently 7 mcg/min. Dr Marsh updated.
--- NOTE | 2019-02-15 12:58 | NUR ---
UPDATE Pt remains on 7 mcg/min levophed; vasopressin on standby. SBP 115-120. MAP 70-80. No additional changes to shift assessment. Pt grimaces with repositioning but has no indications of pain while at rest.
[2019-02-15 13:08] LABS: Hematocrit 22.8 % (37.0-53.0); Hemoglobin 8.2 g/dL (13.5-17.5)
[2019-02-15 18:08] LABS: Hematocrit 22.4 % (37.0-53.0)
--- NOTE | 2019-02-15 18:37 | NUR ---
SUMMARY Pt only responsive to pain this shift. Does not open eyes spontaneously. Gag and cough reflexes noted. Propofol 30 mcg/kg/min Pt remains on ventilator. Pt in reverse trendelenberg to maintain elevated HOB without groin flexion. Femoral arterial line in place, plan to keep line in place until extubation per Dr Marsh. Increasing edema noted to abdomen, penis/scrotum, and BLE since beginning of shift. Vasopressin has remained off. Levophed infusing at 5 mcg/min. No family in to visit pt this shift.
--- NOTE | 2019-02-15 19:30 | NUR ---
Converse of Care: Care assumed at 1900hr. Patient intubated/sedated, appears calm/comfortable, responds to noxious stimuli. Ventilator to AC-16/450/5/30%, O2-93-94%, VSS. Propofol, levophed, TKO infusing to lt IJ central line (see flowsheet), Sodium bicarb also infusing at 125ml/hr. Central line patent and intact, dressing C/D/I. Arterial line to rt femoral, dressing C/D/I, waveform and BP readings WNL. Ryder cath patent and intact, draining clear yellow urine. Rectal tube in place, very scant amount of blood tinged liquid stool noted, does not appear to be actively draining. OG to LIS, small amount of green bile drainage noted, No s/s of active GI bleeding, H+H stable. Bilateral soft wrist restraints in place to protect lines, tubes, cords. Appears calm/comfortable at this time. Will continue to monitor for pain, comfort, safety.
[2019-02-16 00:49] LABS: Hematocrit 22.8 % (37.0-53.0)
[2019-02-16 05:15] LABS: BASOPHILS ABSOLUTE AUTO 0.01 K/mm3 (0.00-0.23); BASOPHILS PERCENT AUTO 0 % (0-2); EOSINOPHILS ABSOLUTE AUTO 0.12 K/mm3 (0.00-0.68); EOSINOPHILS PERCENT AUTO 2 % (0-6); Hematocrit 23.9 % (37.0-53.0); Hemoglobin 8.3 g/dL (13.5-17.5); IMMATURE GRAN ABSOLUTE AUTO 0.05 K/mm3 (0.00-0.10); IMMATURE GRAN PERCENT AUTO 1 % (0-1); LYMPHOCYTES ABSOLUTE AUTO 0.61 K/mm3 (0.84-5.20); LYMPHOCYTES PERCENT AUTO 11 % (21-46); MONOCYTES ABSOLUTE AUTO 0.29 K/mm3 (0.16-1.47); MONOCYTES PERCENT AUTO 5 % (4-13); Mean Corpuscular HGB 30.4 pg (26.0-34.0); Mean Corpuscular HGB Conc 34.7 g/dL (31.5-36.5); NEUTROPHILS ABSOLUTE AUTO 4.51 K/mm3 (1.96-9.15); NEUTROPHILS PERCENT AUTO 81 % (41-73); NRBC ABSOLUTE 0.02 K/mm3 (0.00-0.02); NRBC Auto 0.4 /100 WBC (0.0-0.2); RDW Coefficient Variation 16.2 % (11.7-14.2); RDW Standard Deviation 49.9 fL (35.1-46.3); Red Blood Cell Count 2.73 M/mm3 (4.30-5.90); White Blood Cell Count 5.59 K/mm3 (4.00-11.30)
[2019-02-16 05:26] LABS: Albumin, Blood 2.6 g/dL (3.4-5.0); Anion Gap 8 mmol/L (6-16); Blood Urea Nitrogen 32 mg/dL (8-24); Bun/Creatinine Ratio 21.6 (12.0-20.0); CO2, Blood 29 mmol/L (21-32); Calcium, Blood 7.3 mg/dL (8.5-10.1); Chloride, Blood 100 mmol/L (98-108); Creatinine, Blood 1.48 mg/dL (0.60-1.20); Glomerular Filtration Rate 52 (60-); Glucose, Blood 135 mg/dL (70-99); Phosphorus, Blood 3.1 mg/dL (2.5-4.9); Potassium, Blood 2.8 mmol/L (3.5-5.5); Sodium, Blood 137 mmol/L (136-145)
[2019-02-16 05:36] LABS: Mean Corpuscular Volume 88 fL (80-100); Platelet Count 45 K/mm3 (150-400)
--- NOTE | 2019-02-16 06:36 | NUR ---
Shift Summary: Remains intubated/sedated. Vent to AC- 16/450/5, FiO2 increased from 30% to 45% throughout shift. Continues to respond to noxious stimuli, no s/s of pain/discomfort throughout shift. OG continues to produce small amounts of green bile. Approx 100-150ml bloody loose stool noted in rectal tube throughout shift, H+H remains stable. Ryder cath remains patent and intact, draining clear yellow urine, approx 1500ml output. Arterial line to rt femoral remains patent intact. Central line to lt IJ remains patent and intact, infusing without difficulty. Potassium of 2.8 with morning labs. Call placed to Dr. Marsh, received order for Kphos 30mm IV x1. Appears calm and comfortable at this time. Will continue to monitor until report to day shift RN.
--- NOTE | 2019-02-16 07:15 | NUR ---
BEGINNING OF SHIFT Assumed care of pt at 0700 with Mikala IWLLSON. Bedside report received from River WILLSON. Pt remains on ventilator AC 16, vT 450, FiO2 45%, PEEP 5. Sedated with 30 mg/kg/min propofol. Pt grimaces with oral care and repositioning. Does not follow commands. Levophed 3 mcg/min. SBP 110-120. MAP 80s. Plan to titrate levophed down.
--- NOTE | 2019-02-16 07:45 | NUR ---
DR GIBSON AT BEDSIDE Plan of care discussed with provider. Discussed decreased vasopressor requirements and increase in oxygen requirement overnight. No new orders at this time.
--- NOTE | 2019-02-16 12:00 | NUR ---
UPDATE Pt has not had any visitors yet this shift. Levophed titrated off. Pt has been off levophed for about 1.5 hours. SBP 90s. MAP 60-65. Discussed BP with Dr Marsh. Inquired about albumin for pt. No new orders at this time. Inquired about DC blood glucose checks. Okay to discontinue per Dr Marsh.
[2019-02-16 14:18] LABS: International Normalized Ratio 1.49; Prothrombin Time Results 15.2 Sec (9.7-11.5)
--- NOTE | 2019-02-16 14:50 | NUR ---
UPDATE Levophed restarted at 2 mcg/min due to low BP. Currently SBP 105-115, MAP 70-75. Pt's lisa and spouse of lisa at bedside. Lisa states "My mom is on her way in. She wants to withdraw care." Dr Marsh aware. Family at bedside denies need at this time.
--- NOTE | 2019-02-16 15:24 | NUR ---
FAMILY MEMBERS AT BEDSIDE Several family members at bedside. Discuss interest in withdrawing care. Call placed to Dr Marsh at 1520. Provider states he will round on pt around 1600 and speak with family.
--- NOTE | 2019-02-16 16:19 | NUR ---
CLinical Visit: Pt remains intubated. Dr. Marsh is speaking with the family. Spoke to family member at bedside and then joined family meeting. Family has decided on withdrawal of agressive care and making pt comfort care today. Spoke with family. They would like to have some time with the pt alone, however, gas combustion engineer is okay and requested. Call placed to nursing hot mill supervisor, gas combustion engineer nonprofit fundraiser requested. Checked with nurse, Neema. Discussed premedicating pt. She does not believe she needs anything from palliative at this time. Will remain available.
--- NOTE | 2019-02-16 16:52 | NUR ---
Upon being called in for a call-back by Nursing Motor Generator Set Operator Kenia Aquino, I enter patient's room and found many family members who were grieving appropriately. Family explained that patient is going to be extubated and that the prognosis is grim. I learned that patient is Restorationist and they were hoping that I could pray for the patient. I gladly provided a last rites sort of prayer and a prayer of comfort for the family. I then conducted a brief life review of patient via the family and highlighted the good memories. The family then thanked me for coming which I picked up as a cue that my services were no longer needed. I asked if there was anything else I could do for them and they stated that the prayer was much appreciated and they have no further spiritual needs at this time.
--- NOTE | 2019-02-16 17:28 | NUR ---
SUMMARY Dr Marsh at bedside 1550 and met with family in conference room, per family request. Decision made to withdraw and implement comfort care. Pt extubated at 1650 and is currently comfort measures only. Received ativan and morphine for air hunger during extubation. IV fluids stopped. Central line saline locked. Plans to remove all lines and tubes on final discharge. Family members at bedside with pt, listening to pt's favorite music. Educated on comfort care process and signs of anxiety, pain, and air Deny need at this time. Pt resting in bed, respirations even and unlabored; no signs of anxiety, pain, or dyspnea. Will continue to monitor.
--- NOTE | 2019-02-16 22:17 | NUR ---
PATIENTS RESPERATIONS REMAIN AT APPROX 18. PATIENT OBTUNDED WITH NO CHANGE IN MENTATION, NO VISIBLE CHANGES IN EXPRESSION OR POSTURING. PRN MEDICATION ADMINISTERED FOR COMFORT (SEE EMAR), FAMILY AT BEDSIDE, MONITORING CLOSELY AND GIVING SUPPORT NEEDED.
--- NOTE | 2019-02-17 01:30 | NUR ---
REMOVED ARTERIAL LINE IN PREPARATION OF TRANSFER TO MEDICAL FLOOR. PT REQUIRED LAYING SUPINE IN SLIGHT TRENDELENBERG TO ACCESS RIGHT FEMORAL SITE. DURING REMOVAL OF SHEATH PT'S RR DECREASED TO 5/MIN WITH AGONAL BREATHS AND HR WENT FROM 115 TO 70'S. SHEATH REMOVED AND PRESSURE APPLIED FOR 20 MINS, CLEAR DRESSING APPLIED. SITE SOFT WITH NO HEMATOMA/OOZING/BLEEDING NOTICED. PT'S FAMILY BROUGHT BACK TO PT'S ROOM AND UPDATED ON PT'S DECLINE. PT'S VSS CURRENTLY HR 107 SPO2 50% RR 6. WILL HOLD PT IN ICU AND DELAY TRANSFER CONTINGENT ON PT'S CONDITION.
--- NOTE | 2019-02-17 02:44 | NUR ---
ASSUMED PT CARE AT 0130 PT IS COMFORT CARE WITH FAMILY AT BEDSIDE. CONTINUES WITH AGONAL BREATHING; MEDICATED WITH MORPHINE, ATIVAN, AND ROXONAL FOR COMFORT.
--- NOTE | 2019-02-17 04:14 | NUR ---
TRANSFER OF CARE TO DEMETRIS COOPER UPDATED REGARDING PT STATUS AND LAST ADMINISTRATION OF MEDICATIONS. UPDATED FAMILY REGARDING TRANSFER OF CARE TO MEDICAL FLOOR.
--- NOTE | 2019-02-17 04:53 | NUR ---
RECEIVED PATIENT FROM ICU AND UPON TRANSFERRING PATIENT FROM ICU BED TO MED FLOOR BED I VISUALIZED THAT THE PATIENT WAS NOT BREATHING. NO PULSES FOUND. AUSCULTATED FOR HEART SOUNDS BUT FOUND NONE. CALLED TIME OF AT 0430 02/17/19. PATIENTS NIECE AT BEDSIDE NOTIFIED AND SPENT SEVERAL MINUTES WITH THE PATIENT. NIECE STATED THAT FAMILY HAD CHOSEN "TAYLORs" HOME AND WOULD LIKE FOR THEM TO BE CONTACTED. NIECE STATES THAT FAMILY HAS ALL PATIENT BELONGINGS. HOSPITALIST FIELD ENUMERATOR NOTIFIED.
== END 2019-02-17 04:30 | DRG 377 ==
LOC: DELPENDDIS → ER 06:03 → MEDS 06:04 → ICUE 06:04 → MEDS 09:39 → ENPENDDIS 09:53 → PCU 23:20 → ICUE 02-11 01:44 → MEDS 02-17 04:25
PROVIDERS: Emergency Medicine; Family Medicine; Internal Medicine; Internal Medicine Critical Care Medicine; Internal Medicine Gastroenterology; Internal Medicine Pulmonary Disease; Nurse Practitioner Acute Care; ADMIT Internal Medicine
PROC: 0BH17EZ Insertion of Endotracheal Airway into Trachea, Via Natural or Artificial Opening (ICD-10-PCS; 2019-02-11)
PROC: 5A1945Z Respiratory Ventilation, 24-96 Consecutive Hours (ICD-10-PCS; 2019-02-11)
PROC: 02HV33Z Insertion of Infusion Device into Superior Vena Cava, Percutaneous Approach (ICD-10-PCS; 2019-02-12)
PROC: 3E043XZ Introduction of Vasopressor into Central Vein, Percutaneous Approach (ICD-10-PCS; 2019-02-12)
PROC: 30233K1 Transfusion of Nonautologous Frozen Plasma into Peripheral Vein, Percutaneous Approach (ICD-10-PCS; 2019-02-12)
PROC: 06L38CZ Occlusion of Esophageal Vein with Extraluminal Device, Via Natural or Artificial Opening Endoscopic (ICD-10-PCS; principal; 2019-02-12 17:00)
PROC: B415ZZZ Fluoroscopy of Inferior Mesenteric Artery (ICD-10-PCS; 2019-02-13)
PROC: B414ZZZ Fluoroscopy of Superior Mesenteric Artery (ICD-10-PCS; 2019-02-13)
PROC: 30233N1 Transfusion of Nonautologous Red Blood Cells into Peripheral Vein, Percutaneous Approach (ICD-10-PCS; 2019-02-14)
DX: K62.5 Hemorrhage of anus and rectum (principal); J96.00 Acute respiratory failure, unspecified whether with hypoxia or hypercapnia; D62 Acute posthemorrhagic anemia; K76.6 Portal hypertension; N17.9 Acute kidney failure, unspecified; E87.1 Hypo-osmolality and hyponatremia; D68.9 Coagulation defect, unspecified; N39.0 Urinary tract infection, site not specified; I85.01 Esophageal varices with bleeding; K70.10 Alcoholic hepatitis without ascites; Z51.5 Encounter for palliative care; K31.89 Other diseases of stomach and duodenum; R57.8 Other shock; K72.90 Hepatic failure, unspecified without coma; D69.6 Thrombocytopenia, unspecified; E87.6 Hypokalemia; F41.8 Other specified anxiety disorders; J44.9 Chronic obstructive pulmonary disease, unspecified; F03.90 Unspecified dementia, unspecified severity, without behavioral disturbance, psychotic disturbance, mood disturbance, and anxiety; G47.30 Sleep apnea, unspecified; E03.9 Hypothyroidism, unspecified; F10.20 Alcohol dependence, uncomplicated
CPT/HCPCS: 31500; 31720; 36415; 36430; 36556; 36569; 51702; 71045; 75625; 75726; 80048; 80053; 80069; 81001; 82140; 82310; 82803; 82947; 83605; 83735; 84100; 85014; 85018; 85025; 85027; 85049; 85384; 85610; 85730; 86850; 86900; 86901; 86923; 87040; 87086; 93005; 93010; 94002; 94003; 94760; 96361; 96365; 96375; 96376; 99152; 99153; 99285-25; A9270; C1751; C1769; C1887; C1894; C9113; G0378; J0171; J0330; J0696; J1430; J1644; J2060; J2250; J2270; J2354; J2405; J2704; J3010; J3411; J3480; J7030; J7040; J7050; J7060; J7070; J7120; P9012; P9016; P9035; P9046; P9059; Q9967